=== PATIENT | female | born 2005 | race Caucasian/White ===

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

== ENCOUNTER 2024-10-26 11:49 | Emergency (ER) | payer SELFPAY ==
--- NOTE | ~2024-10-26 | XR_ITS ---
XR chest 2V Ordering provider: Jennifer Torres History: 18 years Female with . sob, chills x 4 days. sharpness on L side . Comparison: March 14, 2023 FINDINGS: MEDIASTINUM: The cardiac silhouette is not enlarged. LUNGS: No infiltrates, effusions or pneumothorax. OTHER: No free air under the diaphragm. IMPRESSION: No acute cardiopulmonary pathology. Reviewed, dictated and finalized at location A.
[2024-10-26 12:12] VITALS: BP 117/67; PULSE 82; RESP 18; TEMP 37; O2SAT 98
[2024-10-26 12:59] LABS: Influenza A QL RT-PCR Negative (Negative); Influenza B QL RT-PCR Negative (Negative); RSV RNA, RT-PCR Negative (Negative); SARS-CoV-2 RNA PCR Negative (Negative)
--- OUTSIDE RECORDS SUMMARY | 2024-10-26 13:08 | XMS_ITS | Data Portability ---
Author Organization [place] [facility] [employer], Main Office Address [address] [place] [address] Assessment No assessment recorded. Plan of Treatment Reminders Order Date Submit Date Provider Last Modified By Organization Details Last Modified Time Details Appointments None recorded. Lab vitamin D, 25-hydroxy , total, serum [email or web address] (Lab), [address] [place], [address], 3 16:56:02 CBC w/ manual diff [email or web address] (Lab), [address] [place], [address], 3 16:56:02 unlisted lab - vitamin B12 medicaid [address] (Lab), [address] [place], [address], 3 16:56:02 TSH, serum or plasma 2022 [address]23 [place] [id number] [address] [facility] (Lab), [address] [place], [address], 3 16:56:02 lipid panel, serum [address] (Lab), [address] [place], [address], 3 16:56:02 Referral None recorded. Procedures None recorded. Surgeries None recorded. Imaging None recorded. Medication Orders None recorded. Patient TargetsNo targets recorded. Patient InstructionsNo instructions recorded. Reason for Referral None Reported. Results Created Date Observation Date Name Description Value Unit Range Abnormal Flag Note LastModifiedBy Organization Detail LastModifiedTime Result Notes None recorded. Problems Name Problem SNOMED Code Status Onset Date Resolution Date Notes Provider Name and Address Organization Details Recorded Time Seasonal allergic rhinitis 802052322 Active 2016 Not Available [facility] 3 19:14:05 Loss of hair 131023269 Active 2022 Soco Arvizu MD [address] [employer], [place], [address] , [facility] 3 10:10:56 Hyperlipidemi a screening Active 2023 AMIRAH Obrien [address] [employer], [place], [address] , [facility] 4 15:49:39 Screening for disorder Active 2023 AMIRAH Obrien [address], [place], [address] , [facility] 4 15:50:08 Problem Notes None recorded. Medical Equipment None Reported. Allergies No known drug allergies Medications Name Sig Start Date Stop Date Status Note LastModified by Organization Details LastModified Time promethazin e-DM 6.25 mg-15 mg/5 mL oral syrup TAKE 5 ML BY MOUTH EVERY 4 TO 6 HOURS NEEDED FOR COUGH active Not Available Not Available No t Available cetirizine 10 mg tablet GIVE ELI 1 TABLET BY MOUTH EVERY DAY prn 02/19 completed Not Available Not Available Not Available azithromyci n 250 mg tablet active Not Available Not Available Not Available cephalexin 500 mg capsule TAKE 1 CAPSULE BY MOUTH EVERY 6 HOURS FOR 5 DAYS 02/19 completed Not Available Not Available Not Available nitrofurant oin macrocrysta l 100 mg capsule TAKE 1 CAPSULE BY MOUTH EVERY 12 HOURS FOR 5 DAYS active Not Available Not Available No t Available methylpredn isolone 4 mg tablets in a dose pack FOLLOW PACKAGE DIRECTION S active Not Available Not Available No t Available albuterol sulfate HFA 90 mcg/actuati on aerosol inhaler INHALE 2 PUFFS BY MOUTH FOUR TIMES DAILY NEEDED active Not Available Not Available No t Available Vitals Date Recorded Body height Body mass index (BMI) [Percentile] Per age and sex Body mass index (BMI) Body weight Body temperature Heart rate Oxygen saturation Oxygen saturation in Arterial blood by Pulse oximetry Systolic blood pressure Diastolic blood pressure Provider Name and Address Organization Details Last Updated DateTime 3 154.94 cm 84 % 25.5 kg/m2 60351.9 7 g 97.6 [degF] 81 /min 99 % 99 % 98 mm[Hg] 62 mm[Hg] Maureen wilkins CMA [facility] 09:55:44 Social History Question Answer Notes LastModified by [facility] Details LastModified Time Tobacco Smoking Status Never Smoker Maureen Sewell CMA [facility], [facility] 02/19/2023 09:57:46 What Is Your Level Of Alcohol Consumption? None [email or web address] Information not available 02/19/2023 Are You Or Have You Been Involved With Bullying? No [email or web address] Information not available 02/19/2023 What Is Your Level Of Caffeine Consumption? Occasional [email or web address] Information not available 02/19/2023 Are You Currently Employed? Yes [email or web address] Information not available 02/19/2023 What Type Of Diet Are You Following? REGULAR [email or web address] Information not available 02/19/2023 Do You Use Your Seat Belt Or Car Seat Routinely? Yes [email or web address] Information not available 02/19/2023 Are You Currently In School? Yes [email or web address] Information not available 02/19/2023 Do You Have Any Dietary Restrictions? No [email or web address] Information not available 02/19/2023 Sex: Female Functional Status Question Answer Note LastModified by [facility] Details LastModified Time What is your exercise level? Occasional [email or web address] Information not available 02/19/2023 Mental Status None recorded. Family History Nothing Reported. Medical History No medical history recorded. Gynecological HistoryNo gynecological history recorded. Obstetrics History GPAL:G 0 P 0 0 0 0 Immunizations Vaccine Type Date Status Note Provider Nam e and Address Organization Details Recorded Time Tdap 7 completed Not Available [facility] 08/28/2022 19:14:51 meningococcal MCV4P 7 completed Not Available [facility] 08/28/2022 19:14:51 HPV9 7 completed Not Available [facility] 08/28/2022 19:14:52 Past Encounters Encounter ID Performer Location Encounter Start Date Encounter Closed Date Diagnosis/Indication Diagnosis SNOMED-CT Code Diagnosis ICD10 Code Diagnosis Note [id number] Soco Arvizu MD [facility] Allie garay [address] [facility], [place] [address] 02/19/2023 09:47:26 02/19/2023 10:16:22 Adult health examination 116309314 Z00.00 Hyperlipid emia screening 459405527 Z13.220 Screening for disorder 573459218 Z13.9 Loss of hair 699349185 L 65.9 Health Concerns Section Related Observation LastModified by Organization Detai ls LastModified Time None Recorded Concern Status LastModified by Organization Details LastModified Time None Recorded Advance Directives Directive None Recorded Payers Encounter Date Sequence Insurance Name Policy Number Policy Silver Covered Member ID Silver Member ID Guarantor Name 02/19/2023 1 [facility] (MEDICAID REPLACEMENT - HMO) [id number] Eli Hernandez [id number] Notes Date Note Type Note Provider Name and Address Organization Details Recorded Time 02/19/2023 text/html Here as a new pt . to establish care. Had asthma but no issues. Thyroid issues run in the family. Was losing weight and hair loss. Is still losing hair. No other issues. Needs school form filled out and needs meningitis vaccine. Pt has to go to the health dept d/t insurance. Soco Arvizu MD [address] [facility], [facility] [address], [place], [address], [facility] [employer] [facility] [place] 02/19/2023 10:19:34 OBGyn Episode No OBEpisode recorded.
--- OUTSIDE RECORDS SUMMARY | 2024-10-26 13:08 | XMS_ITS | Clinical Summary ---
Author Organization [facility] Address [address] [place] [address] Care Team Providers Care Try Out Person Name Role Phone Unavailable Primary Care Provider Unavailabl e Immunizations Immunization Administration Dates Next Due Covid-19, Mrna, Lnp-s, Pf, 30 Mcg/0.3 Ml Dose (P fizer) 04/03/2021 Social History Tobacco Use Types Packs/Day Years Used Date Smoking Tobacco: Never Assessed Comments Unknown Sex and Gender Information Value Date Recorded Sex Assigned at Not on file Legal Sex Female 12:46 PM CDT Gender Identity Not on file Sexual Orientation Not on file Plan of Treatment Health Maintenance Due Date Last Done Comments Hepatitis C Virus (HCV) Screening 2004 Human Papillomavirus (HPV) Immunization (2 - 2-dose series) 10/09/2017 04/10/2017 Meningococcal B Immunization (1 of 2 - Standard) 2020 Influenza Immunization (#1) 2024 SARS-COV-2 Immunization (2 - season) 2024 04/03/2021 Respiratory Syncytial Virus (RSV) Immunization (Adult) (1 - 1-dose 75+ series) 12/22/2079 Hepatitis A Immunization Discontinued 03/05/2007, 06/30 Hepatitis B Immunization Completed 007, 07/11/2006, 2004 Measles Mumps Rubella (MMR) Immunization Discontinued 03/20/2010, 07/11/2006 Pneumococcal Immunization Combined Aged Out 03/20/2010, 03/05/2007, 07/11/2006 No longer eligible based on patient's age to complete this topic Varicella Immunization Discontinued 03/20/2010, 2006 Polio (IPV) Immunization Discontinued 011, 03/20/2010, 03/05/2007, Additional history exists DTaP/Tdap/Td Immunization Discontinued 2016, 10/03/2010, 03/20/2010, Additional history exists Meningococcal Immunization (ACWY) Aged Out 04/10/2017 No longer eligible based on patient's age to complete this topic TdaP Immunization Completed 04/10/2017 Rotavirus Immunization Aged Out No lo nger eligible based on patient's age to complete this topic
--- NOTE | 2024-10-26 13:56 | ED_ITS ---
HPI - URI/Sore Throat General Chief Complaint: Upper Respiratory Infection Stated Complaint: SHOB-congestion, Left Lung Pain Time Seen by Provider: 10/26/24 13:56 Focused HPI: This is a 18 year old female that presents to the ER for congestion, shortness of breath, cough, left sided chest pain. Ongoing since she woke up this morning. Denies fevers. GENERAL: Well-appearing, well-nourished, and in no acute distress. HEAD: Normocephalic, atraumatic. CHEST: Clear to auscultation. ?No respiratory distress. HEART: Regular rate and rhythm.? NEURO: ?Alert and oriented x3. Patient screened in triage and initial orders placed.? ?Additional care and disposition to be based upon?diagnostic testing and treatment. Related Data Allergies Allergy/AdvReac Type Severity Reaction Status Date / Time No Known Allergies Allergy Mild Verified 10/26/24 11:54 Review of Systems 2 Review of Systems: All systems reviewed & are unremarkable except as noted in HPI and below PMFSH Past Medical History Medical History (Updated 10/26/24 @ 14:57 by Jennifer Torres PA-C) No active medical problems Social History Social History (Updated 01/09/22 @ 17:42 by Larissa Long, CREDIT REVIEW OFFICER) Smoking status: Never smoker Living arrangements: with family Gender identity (if verbalized by the patient): Female Exam 2 Narrative: GENERAL: Well-appearing, well-nourished, and in no acute distress. HEAD: Normocephalic, atraumatic. EYES: EOMI. ENT: Nares clear, no rhinorrhea or epistaxis. Mucous membranes moist. Oropharynx without tonsillar hypertrophy exudate or other lesions. Bilateral TMs pearly zhang non-bulging NECK: Supple. No adenopathy or masses. CHEST: Clear to auscultation. No respiratory distress. No wheezes rales or rhonchi HEART: Regular rate and rhythm. No murmur heard. Normal peripheral pulses. EXTREMITIES: Normal range of motion. No edema. SKIN: Warm, dry, no rash. NEURO: No focal deficits. Alert and oriented x3. PSYCH: Normal mood and affect Course Course Emergency Course: Patient updated on her workup and agrees with plan of care Vital Signs Vital signs: Vital Signs Temperature 98.6 F 10/26/24 12:12 Pulse Rate 82 10/26/24 12:12 Respiratory Rate 18 10/26/24 12:12 Blood Pressure 117/67 10/26/24 12:12 Pulse Oximetry 98 10/26/24 12:12 Oxygen Delivery Room Air 10/26/24 12:12 Temperature 98.6 F 10/26/24 12:12 Pulse Rate 82 10/26/24 12:12 Respiratory Rate 18 10/26/24 12:12 Blood Pressure 117/67 10/26/24 12:12 Pulse Oximetry 98 10/26/24 12:12 Oxygen Delivery Room Air 10/26/24 12:12 MDM - URI/Sore Throat MDM Narrative Medical decision making narrative: Patient presents emergency department for cough, congestion, shortness of breath, chest discomfort. She is afebrile and nontoxic appearing. CBC with mild leukocytosis to 13.8. Metabolic panel without concerning findings. EKG without concerning changes and baseline troponin is negative. Influenza, RSV COVID screens are negative. Chest x-ray without acute cardiopulmonary abnormality. Patient updated on her workup and agrees with plan of care. Instructed on further care of viral infection. She is to follow up with primary provider. She was given warnings to return the ER Differential Diagnosis Differential diagnosis: Likely upper respiratory infection, sinusitis, viral infection, bronchitis, influenza and other (Pneumonia) Lab Data Attestation: I reviewed the patient's lab results. 10/26/24 14:09 10/26/24 14:09 Labs: Lab Results 10/26/24 10/26/24 Range/Units 12:13 14:09 WBC 13.8 H (4.5-10.0) K/mm3 RBC 4.14 L (4.2-5.4) M/mm3 Hgb 12.7 (12.0-15.0) g/dL Hct 38.8 (37.0-47.0) % MCV 93.7 (80-100) fl MCH 30.7 (26-34) pg MCHC 32.7 (32-36) g/dl RDW 13.1 (11.5-14.5) % Plt Count 259 (150-375) k/mm3 MPV 9.7 (7.4-10.4) fl Immature Gran % (Auto) 0.5 (0-0.5) % Neut % (Auto) 82.2 H (45.5-73.1) % Lymph % (Auto) 8.7 L (18.3-44.2) % Cavalier % (Auto) 6.6 (2.6-8.5) % Eos % (Auto) 1.7 (0-4.4) % Baso % (Auto) 0.3 (0.2-1.2) % Lymph # (Auto) 1.20 (0.9-3.2) K/mm3 Cavalier # (Auto) 0.9 H (0.1-0.6) K/mm3 Eos # (Auto) 0.2 (0-0.3) K/mm3 Baso # (Auto) 0.0 (0.0-0.1) K/mm3 Abs Immat Gran (auto) 0.07 H (0.00-0.031) K/mm3 Absolute Neuts (auto) 11.4 H (1.3-6.7) K/mm3 Absolute Nucleated RBC 0.000 (0.0-0.012) K/mm3 Nucleated RBC % 0.0 (0.0-0.2) % Sodium 136 (134-143) mmol/L Potassium 4.1 (3.4-5.0) mmol/L Chloride 102 (98-107) mmol/L Carbon Dioxide 23 (22-30) mmol/L Anion Gap 11 (4-12) mmol/L BUN 8 (8-21) mg/dL Creatinine 0.56 L (0.7-1.0) mg/dL Estim Creat Clear Calc 118 ml/min Estimated GFR > 60 (59 - ) Glucose 93 (65-110) mg/dL Calcium 9.3 (8.9-10.7) mg/dL Troponin I < 0.012 (0.000-0.034) ng/mL Influenza A (RT-PCR) Negative (Negative) Influenza B (RT-PCR) Negative (Negative) RSV (RT-PCR) Negative (Negative) SARS-CoV-2 RNA (RT-PCR) Negative (Negative) Imaging Data Radiologist's impression: ITS Impressions Chest X-Ray 10/26/24 14:41 IMPRESSION: No acute cardiopulmonary pathology. ECG Data EKG #1: ECG completion date: 10/26/24 EKG Interpretation: normal rate, sinus rhythm, no ST changes and normal QT Critical Care Time Critical Care Time Critical Care Time: No Discharge Plan Discharge Clinical Impression: Upper respiratory infection Qualifiers: URI type: unspecified viral URI Qualified Code(s): J06.9 - Acute upper respiratory infection, unspecified Patient Disposition: Home Condition: Stable Instructions: Cold Symptoms (ED) Additional Instructions: Return to the emergency department for worsening symptoms, or any other concerns Remain well-hydrated, get plenty of rest. Take Tylenol or Motrin [id number] for pain as needed. Flonase for nasal congestion. Zyrtec for runny nose. Lozenges or Chloraseptic spray for sore throat. Follow up with primary care doctor Patient Language: Hong Konger Prescriptions: No Action nitrofurantoin macrocrystal 100 mg capsule 100 mg PO Q12H 5 Days Qty: 10 5RF Rx Instructions: must administer with a meal/food Follow-up/Referrals: Luh,Soco Villarreal MD [Primary Care Provider] - Fady Ozuna MD [Physician] -
--- NOTE | 2024-10-26 13:58 | ECG_ITS ---
Test Date: 2024-10-26 14:12:55 Measurements Intervals [place] Rate: 96 P: 67 HI: 145 QRS: 82 QRSD: 91 T: 42 QT: 320 QTc: 405 Interpretive Statements SINUS RHYTHM WITH SINUS ARRHYTHMIA MINIMAL Q WAVES- INFERIOR LEADS BORDERLINE ECG No previous ECG available for comparison Electronically Signed On 10-26-2024 14:38:47 CDT by Konstantin Feldman D.O.
[2024-10-26 14:22] LABS: Basophils Percent Auto 0.3 % (0.2-1.2); Eosinophils Absolute Auto 0.2 K/mm3 (0-0.3); Eosinophils Percent Auto 1.7 % (0-4.4); Hematocrit 38.8 % (37.0-47.0); Hemoglobin 12.7 g/dL (12.0-15.0); Immature Granulocyte Absolute 0.07 K/mm3 (0.00-0.031); Immature Granulocyte Percent A 0.5 % (0-0.5); Lymphocytes Percent Auto 8.7 % (18.3-44.2); Mean Corpuscular HGB Conc 32.7 g/dl (32-36); Mean Corpuscular Hemoglobin 30.7 pg (26-34); Mean Corpuscular Volume 93.7 fl (80-100); Mean Platelet Volume 9.7 fl (7.4-10.4); Monocytes Absolute Auto 0.9 K/mm3 (0.1-0.6); Monocytes Percent Auto 6.6 % (2.6-8.5); Neutrophils Absolute Auto 11.4 K/mm3 (1.3-6.7); Neutrophils Percent Auto 82.2 % (45.5-73.1); Platelet Count Result 259 k/mm3 (150-375); Red Blood Count 4.14 M/mm3 (4.2-5.4); Red Cell Distribution Width 13.1 % (11.5-14.5); White Blood Count 13.8 K/mm3 (4.5-10.0)
[2024-10-26 14:32] LABS: Anion Gap 11 mmol/L (4-12); Blood Urea Nitrogen 8 mg/dL (8-21); Calcium 9.3 mg/dL (8.9-10.7); Carbon Dioxide 23 mmol/L (22-30); Chloride 102 mmol/L (98-107); Estimated CRCL calculation 118 ml/min; Estimated Glomerular Filt Rate > 60; Glucose 93 mg/dL (65-110); Potassium 4.1 mmol/L (3.4-5.0); Sodium 136 mmol/L (134-143)
[2024-10-26 14:44] LABS: Troponin I < 0.012 ng/mL (0.000-0.034)
== END 2024-10-26 15:10 | disposition home or self-care (01) ==
LOC: ANHED 15:07
PROVIDERS: Emergency Medicine; Emergency Provider Physician Assistant
DX: J06.9 Acute upper respiratory infection, unspecified (principal); Z20.822 Contact with and (suspected) exposure to COVID-19
CPT/HCPCS: 36415; 71046; 80048; 84484; 85025; 87637; 93005; 99284

== ENCOUNTER 2025-01-18 20:46 | Emergency (ER) | payer SELFPAY ==
--- OUTSIDE RECORDS SUMMARY | 2025-01-18 20:48 | XMS_ITS | Data Portability ---
Author Organization [place] [facility] [employer], Main Office Address [address] [place] [address] Assessment No assessment recorded. Plan of Treatment Reminders Order Date Submit Date Provider Last Modified By Organization Details Last Modified Time Details Appointments None recorded. Lab vitamin D, 25-hydroxy , total, serum 2022 023 [email or web address] 2 [facility] (Lab), [address] [place], [address], 16:56:02 CBC w/ manual diff 2022 023 [facility] 2 [facility] (Lab), [address] [place], [address], 16:56:02 unlisted lab - vitamin B12 medicaid 2022 023 [facility] 2 [facility] (Lab), [address] [place], [address], 16:56:02 TSH, serum or plasma 2022 023 [facility] 2 [facility] (Lab), [address] [place], [address], 3 16:56:02 lipid panel, serum 2022 023 [facility] 2 [facility] (Lab), [address] [place], [address], 3 16:56:02 Referral None recorded. Procedures None recorded. Surgeries None recorded. Imaging None recorded. Medication Orders None recorded. Patient TargetsNo targets recorded. Patient InstructionsNo instructions recorded. Reason for Referral None Reported. Results Created Date Observation Date Name Description Value Unit Range Abnormal Flag Note LastModifiedBy Organization Detail LastModifiedTime 10/27/1910/26/2024 imagi ng/moris evert tic resul t No observ ation record ed. [facility] [address], [place], [address], 10/26/2024 16:21:09 Result Notes None recorded. Problems Name Problem SNOMED Code Status Onset Date Resolution Date Notes Provider Name and Address Organization Details Recorded Time Seasonal allergic rhinitis 885508103 Active 2016 Not Available [facility] 3 19:14:05 Loss of hair 160095183 Active 2022 Soco Arvizu MD [address], [place], [address] , [employer] 3 10:10:56 Hyperlipidemi a screening Active 2023 AMIRAH Obrien [address], [place], [address] , [employer] 4 15:49:39 Screening for disorder Active 2023 AMIRAH Obrien [address], [place], [address] , [employer] 4 15:50:08 Problem Notes None recorded. Medical [...] in Arterial blood by Pulse oximetry Systolic And Diastolic Provider Name and Address Organization Details Last Updated DateTime 154.94 cm 84 % 25.5 kg/m2 68731.9 7 g 97.6 [degF] 81 /min 99 % 99 % 98/62 mm[Hg] Maureen wilkins CMA [employer] 09:55:44 Social History Question Answer Notes LastModified by [employer] Details LastModified Time Tobacco Smoking Status Never Smoker Maureen Sewell CMA [facility], [employer] 02/19/2023 09:57:46 What Is Your Level Of Caffeine Consumption? Occasional [email or web address] Information not available 02/19/2023 What Type Of Diet Are You Following? REGULAR [email or web address] Information not available 02/19/2023 Do You Use Your Seat Belt Or Car Seat Routinely? Yes [email or web address] Information not available 02/19/2023 Are You Currently In School? Yes [email or web address] Information not available 02/19/2023 Do You Have Any Dietary Restrictions? No [email or web address] Information not available 02/19/2023 Sex: Female Functional Status Question Answer Note LastModified by [employer] Details LastModified Time What is your level of alcohol consumption? None [email or web address] Information not available 02/19/2023 Are you currently employed? Yes [email or web address] Information not available 02/19/2023 What is your exercise level? Occasional [email or web address] Information not available 02/19/2023 Mental Status Question Answer Note LastModified by Organization D etails LastModified Time Are you or have you been involved with bullying? No [email or web address] Information not available 02/19/2023 Family History Nothing Reported. Medical History No medical history recorded. Gynecological HistoryNo gynecological history recorded. Obstetrics History GPAL:G 0 P 0 0 0 0 Immunizations Vaccine Type Date Status Note Provider Nam e and Address Organization Details Recorded Time Tdap 7 completed Not Available [facility] 08/28/2022 19:14:51 meningococcal MCV4P 7 completed Not Available [facility] 08/28/2022 19:14:51 HPV9 7 completed Not Available [facility] 08/28/2022 19:14:52 Past Encounters Encounter ID Performer Location Encounter Start Date Encounter Closed Date Diagnosis/Indication Diagnosis SNOMED-CT Code Diagnosis ICD10 Code Diagnosis Note [id number] Soco Arvizu MD [facility] Family Practice Rodney landry [address] [facility] [address] [place] [address] 02/19/2023 09:47:26 02/19/2023 10:16:22 Adult health examination 147772236 Z00.00 Hyperlipid emia screening 362937620 Z13.220 Screening for disorder 212098217 Z13.9 Loss of hair 401806347 L 65.9 Health Concerns Section Related Observation LastModified by Organization Detai ls LastModified Time None Recorded Concern Status LastModified by Organization Details LastModified Time None Recorded Advance Directives Directive None Recorded Payers Insurance Date Sequence Insurance Name Policy Number Policy Silver Covered Member ID Silver Member ID Guarantor Name 02/25/2024 1 [facility] (MEDICAID REPLACEMENT - HMO) [id number] Eli Hernandez [id number] Notes Date Note Type Note Provider [...] health dept d/t insurance. Soco Arvizu MD [address] [place] [address], [facility] [address], [place], [address], [facility], [facility] 02/19/2023 10:19:34 OBGyn Episode No OBEpisode recorded.
--- OUTSIDE RECORDS SUMMARY | 2025-01-18 20:48 | XMS_ITS | Clinical Summary ---
Author Organization [facility] Address [address] [place] [address] Care Team Providers Care Cigar Maker Name Role Phone Unavailable Primary Care Provider [...]
--- OUTSIDE RECORDS SUMMARY | 2025-01-18 20:48 | XMS_ITS | Clinical Summary ---
Author Organization [facility] Address [address] [place] [address] Care Team Providers Care Patient Account Liaison Name Role Phone None, Provider Primary Care Provider Unavaila ble Allergies No known active allergies Medications No known medications Encounters Date Type Department Care Team Description 12/06/2024 2:24 PM CDT - 12/06/2024 4:15 PM CDT Emergency [facility] [place] [address] Ronn Conroy PA Abdominal Pain; Nausea Discharge Disposition: Home or Self Care (Routine Discharge) 12/06/2024 Travel 10/27/2024 10:48 AM CDT - 10/27/2024 12:40 PM CDT Emergency [facility] [place] [address] Emma Collado PA Flu Like Symptoms Discharge Disposition: Home or Self Care (Routine Discharge) 10/27/2024 Travel from Last 3 Months Social History Tobacco Use Types Packs/Day Years Used Date Smoking Tobacco: Never Smokeless Tobacco: Never Tobacco Cessation:Counseling Given: Not Answered Alcohol Use Standard Drinks/Week Comments Yes 0 (1 standard drink = 0.6 oz pur e alcohol) Comments No Sex and Gender Information Value Date Recorded Sex Assigned at Female 10/27/2024 11:06 AM CDT Legal Sex Female 10:14 AM CDT Gender Identity Not on file Sexual Orientation Not on file Last Filed Vital Signs Vital Sign Reading Time Taken Comments Blood Pressure 114/79 12/06/2024 2:11 PM CDT Pulse 67 12/06/2024 2:11 PM CDT Temperature 36.7 C (98 F) 12/06/2024 2:11 PM CDT Respiratory Rate 12 12/06/2024 2:11 PM CDT Oxygen Saturation 100% 12/06/2024 2:11 PM CDT Inhaled Oxygen Concentration - - Weight 66.9 kg (147 lb 7.8 oz) 12/06/2024 2:11 P M CDT Height 154.9 cm (5' 1) 12/06/2024 2:11 PM CDT Body Mass Index 27.87 12/06/2024 2:11 PM CDT Plan of Treatment Health Maintenance Due Date Last Done Comments Annual Physical 12/22/2007 HPV Vaccines (2 - 2-dose series) 10/09/2017 04/10/2017 Meningococcal B Vaccine (1 of 2 - Standard) 2020 Hepatitis C 2022 COVID-19 Vaccine ( season) 2024 04/24/2021, 04/03/2021 DTaP, Tdap and Td Vaccines (6 - Td or Tdap) 04/10/2027 04/10/2017, 10/03/2010, 03/20/2010, Additional history exists Hepatitis B Vaccines Completed 03/05/2007, 07/11/2006, 2004 Pneumococcal Vaccine: Pediatrics (0 to 5 Years) and At-Risk Patients (6 to 49 Years) Aged Out 03/20/2010, 03/05/2007, 07/11/2006 No longer eligible based on patient's age to complete this topic Meningococcal Vaccine Completed 04/14/2023, 017 RSV Immunizations Under 20 Months Aged Out No longer eligible based on patient's age to complete this topic Procedures Procedure Name Priority Date/Time Associated Diagnosis Comments XR ABD KUB STAT 12/06/2024 2:55 PM CDT POCT URINE (BACK OFFICE) STAT 12/06/2024 2:38 PM CDT HC URINALYSIS AUTO W/O MICRO STAT 12/06/2024 2:25 PM CDT LIPASE STAT 12/06/2024 2:25 PM CDT COMPREHENSIVE METABOLIC PANEL STAT 12/06/2024 2:25 PM CDT CBC W/DIFF AUTOMATED STAT 12/06/2024 2:25 PM CDT STREP A RAPID STAT 10/27/2024 11:06 AM CDT INFLUENZA A & B STAT 10/27/2024 11:06 AM CDT CORONAVIRUS (COVID 19) STAT 11:06 AM CDT COMPREHENSIVE METABOLIC PANEL STAT 10/27/2024 11:01 AM CDT CBC W/DIFF AUTOMATED STAT 10/27/2024 11:01 AM CDT POCT URINE (BACK OFFICE) STAT 10/27/2024 10:59 AM CDT from Last 3 Months Results * XR ABD KUB (12/06/2024 2:55 PM CDT) Anatomical Region Laterality Modality Abdomen Radiographic Shey ging 12/06/2024 2:58 PM CDT Impressions 12/06/2024 2:59 PM CDT IMPRESSION: Nonobstructive bowel gas pattern with mild amount of retained stool. Ordered By: RONN CONROY Interpreted By: Damon Lopez MD, 12/06/2024 2:58 PM Narrative 12/06/2024 2:59 PM CDT [facility] [address] [place], [place] [address] Examination: XR ABD KUB Exam time: 12/06/2024 2:44 PM Indication: constipation Comparison: None available. Technique: 2 supine views of the abdomen, 2 images. Findings: There is a nonobstructive bowel gas pattern with a mild amount of retained stool. No evidence of free intraperitoneal air or pneumatosis. Lung bases appear clear. No acute osseous abnormality. Procedure Note Damon Lopez MD - 12/06/2024 [facility] [address] [place], [place] [address] Examination: XR ABD KUB Exam time: 12/06/2024 2:44 PM Indication: constipation Comparison: None available. Technique: 2 supine views of the abdomen, 2 images. Findings: There is a nonobstructive bowel gas pattern with a mild amountof retained stool. No evidence of free intraperitoneal air or pneumatosis.Lung bases appear clear. No acute osseous abnormality. IMPRESSION: Nonobstructive bowel gas pattern with mild amount of retained stool. Ordered By: RONN CONROY Interpreted By: Damon Lopez MD, 12/06/2024 2:58 PM [facility] Final Resul t * POCT urine (12/06/2024 2:38 PM CDT) Only the most recent of2 resultswithin the time period is included. URINE HCG TEST NEGATIVE Internal Control: VALID 12/06/2024 2:38 PM CDT Ronn [facility] POINT OF CARE TEST ORDERABL ES Final Result * URINALYSIS (12/06/2024 2:25 PM CDT) SPECIMEN TYPE URINE CLEAN CATCH 12/06/2024 2:38 PM CDT [facility] COLOR (U) COLORLESS 12/06/2024 2:44 PM CDT [facility] TRANSPARENCY CLEAR 12/06/2024 2:44 PM CDT [facility] SPECIFIC GRAVITY (U) 1.010 1.001 - 1.030 12/06/2024 2:44 PM CDT [facility] U PH 7.0 5.0 - 9.0 12/06/2024 2:44 PM CDT [facility] LEUKOCYTES (U) NEGATIVE NEGATIVE 12/06/2024 2:44 PM CDT [facility] NITRITES NEGATIVE NEGATIVE 12/06/2024 2:44 PM CDT [facility] PROTEIN RANDOM (U) NEGATIVE <30 MG/DL 12/06/2024 2:44 PM CDT [facility] GLUCOSE (U) NORMAL NORMAL MG/DL 12/06/2024 2:44 PM CDT [facility] KETONES MG/DL (U) NEGATIVE NEGATIVE MG/DL 12/06/2024 2:44 PM CDT [facility] UROBILINOGEN NORMAL NORMAL MG/DL 12/06/2024 2:44 PM CDT [facility] BILIRUBIN (U) NEGATIVE NEGATIVE MG/DL 12/06/2024 2:44 PM CDT [facility] BLOOD (U) NEGATIVE NEGATIVE 12/06/2024 2:44 PM CDT [facility] URINE SPECIMEN OBTAINED BY CLEAN CATCH PROCEDURE / Unknown 12/06/2024 2:25 PM CDT us Ronn MACARIO URINE ORDERABLES Final Resu lt [facility] [address] [place] [address], [place] [phone] * COMPREHENSIVE METABOLIC PANEL (12/06/2024 2:25 PM CDT) Only the most recent of2 resultswithin the time period is included. GLUCOSE 91 70 - 99 MG/DL 12/06/2024 3:07 PM CDT [facility] BUN 9 7 - 18 MG/DL 12/06/2024 3:07 PM CDT [facility] CREATININE S/P/B 0.61 0.55 - 1.02 MG/DL 12/06/2024 3:07 PM CDT [facility] SODIUM S/P/B 138 136 - 145 MMOL/L 12/06/2024 3:07 PM CDT [facility] POTASSIUM S/P/B 3.9 3.5 - 5.1 MMOL/L 12/06/2024 3:07 PM CDT [facility] CHLORIDE S/P/B 109 97 - 115 MMOL/L 12/06/2024 3:07 PM CDT [facility] CO2 22.1 21 - 32 MMOL/L 12/06/2024 3:07 PM CDT [facility] CALCIUM S/P/B 9.2 8.5 - 10.1 MG/DL 12/06/2024 3:07 PM CDT [facility] BILIRUBIN TOTAL S/P/B 0.5 0.2 - 1.1 MG/DL 12/06/2024 3:07 PM CDT [facility] Comment: THIS ASSAY IS NOT RECOMMENDED FOR PATIENTS UNDERGOING TREATMENT WITH ELTROMBOPAG DUE TO THE POTENTIAL FOR FALSELY ELEVATED RESULTS. TOTAL PROTEIN S/P/B 7.7 6.4 - 8.2 G/DL 12/06/2024 3:07 PM CDT [facility] ALBUMIN S/P/B 3.9 3.4 - 5.0 G/DL 12/06/2024 3:07 PM T [facility] AST 18 15 - 37 U/L 12/06/2024 3:07 PM CDT [facility] ALT 36 14 - 55 U/L 12/06/2024 3:07 PM CDT [facility] ALKALINE PHOSPHATASE S/P/B 59 50 - 136 U/L 12/06/2024 3:07 PM CDT [facility] ANION GAP 6.9 2 - 10 MMOL/L 12/06/2024 3:07 PM CDT [facility] BUN CREATININE RATIO 14.8 6 - 26 12/06/2024 3:07 PM CDT [facility] A/G RATIO 1.0 1.0 - 2.0 RATIO 12/06/2024 3:07 PM CDT [facility] GFR ESTIMATE >90 >90 ML/MIN/1.7 3 M2 12/06/2024 3:07 PM CDT [facility] Comment: NOTE: eGFR is not calculated for patients <18 years of age or gender unknown. This is an estimated GFR calculation using the new CKD EPI creatinine equation without race and so does not require a correction factor for race. This estimated GFR should not be used for calculating drug doses. 12/06/2024 2:25 PM CDT [facility] Final Resul t [facility] [address] [place] [address], [place] [phone] * CBC W/DIFF AUTOMATED (12/06/2024 2:25 PM CDT) Only the most recent of2 resultswithin the time period is included. WBC 8.29 4.5 - 13.0 x10'3/uL 12/06/2024 3:00 PM CDT [facility] RBC 4.31 4.20 - 5.40 x10'6/uL 12/06/2024 3:00 PM CDT [facility] HGB 13.1 12.0 - 16.0 G/DL 12/06/2024 3:00 PM CDT [facility] HCT 38.6 38.0 - 48.0 % 12/06/2024 3:00 PM CDT [facility] MCV 89.6 81.0 - 99.0 FL 12/06/2024 3:00 PM CDT [facility] MCH 30.4 27.0 - 31.0 PG 12/06/2024 3:00 PM CDT [facility] MCHC 33.9 32.0 - 36.0 G/DL 12/06/2024 3:00 PM CDT [facility] RDW 12.5 11.5 - 14.5 % 12/06/2024 3:00 PM CDT [facility] PLT 260 130 - 400 x10'3/uL 12/06/2024 3:00 PM CDT [facility] MPV 10.2 9.3 - 12.2 FL 12/06/2024 3:00 PM CDT [facility] DIFFERENTIAL TYPE AUTOMATED DIFFERENTIAL 12/06/2024 3:00 PM CDT [facility] NEUTROPHILS % 72.3 % 12/06/2024 3:00 PM CDT [facility] LYMPHOCYTES % 18.6 % 12/06/2024 3:00 PM CDT [facility] MONOCYTES % 6.6 % 12/06/2024 3:00 PM CDT [facility] EOSINOPHILS 1.8 % 12/06/2024 3:00 PM CDT [facility] BASOPHILS 0.5 % 12/06/2024 3:00 PM CDT [facility] IMMATURE GRANS % 0.2 % 12/07/19 3:00 PM CDT [facility] ABS. NEUTROPHILS 5.99 1.80 - 8.00 x10'3/uL 12/06/2024 3:00 PM CDT [facility] ABS. LYMPHOCYTES 1.54 1.20 - 5.20 x10'3/uL 12/06/2024 3:00 PM CDT [facility] ABS. MONOCYTES 0.55 0.24 - 0.86 x10'3/uL 12/06/2024 3:00 PM CDT [facility] ABS. EOSINOPHILS 0.15 0.04 - 0.36 x10'3/uL 12/06/2024 3:00 PM CDT [facility] ABS. BASOPHILS 0.04 0.01 - 0.08 x10'3/uL 12/06/2024 3:00 PM CDT [facility] ABS. IMMATURE GRANULOCYTES 0.02 0.00 - 0.49 x10'3/uL 12/06/2024 3:00 PM CDT [facility] 12/06/2024 2:25 PM CDT [facility] Final Resul t [facility] [address] [place] [address], [place] [phone] * LIPASE (12/06/2024 2:25 PM CDT) LIPASE 23 13 - 75 UNITS/L 12/06/2024 3:07 PM CDT [facility] 12/06/2024 2:25 PM CDT [facility] Final Resul t [facility] [address] [place] [address], [place] [phone] * CORONAVIRUS (COVID 19) (10/27/2024 11:06 AM CDT) CORONAVIRUS SARS COV 2 RNA NEGATIVE NEGATIVE 10/27/2024 11:27 AM CDT [facility] Comment: NEGATIVE RESULTS DO NOT RULE OUT COVID 19 AND SHOULD NOT BE USED THE SOLE BASIS FOR TREATMENT OR PATIENT MANAGEMENT DECISIONS, INCLUDING INFECTION CONTROL DECISIONS. NEGATIVE RESULTS SHOULD BE CONSIDERED IN THE CONTEXT OF A PATIENT'S RECENT EXPOSURES, HISTORY AND THE PRESENCE OF CLINICAL SIGNS AND SYMPTOMS CONSISTENT WITH COVID 19. THE ID NOW COVID-19 2.0 TEST HAS BEEN AUTHORIZED BY THE FDA UNDER EAU FOR USE BY AUTHORIZED LABORATORIES. PERFORMED BY NUCLEIC ACID AMPLIFICATION FOR MOLECULAR QUALITATIVE DETECTION OF SARS-COV-2. SPECIMEN TYPE NASAL 10/27/2024 11:06 AM CDT [facility] NASAL STRUCTURE / Unknown 10/27/2024 11:06 AM CDT Emma [facility] - GENERAL ORDER RIYA Final Result [facility] [address] [place] [address], * INFLUENZA A & B (10/27/2024 11:06 AM CDT) SPECIMEN TYPE Negative for Group A Streptococci 10/27/2024 11:07 AM CDT [facility] INFLUENZA A NEGATIVE NEGATIVE 10/27/2024 11:27 AM CDT [facility] INFLUENZA B NEGATIVE NEGATIVE 10/27/2024 11:27 AM CDT [facility] Comment: Interpretation: Negative for Influenza A and B. A negative result does not exclude influenza virus infection. If influenza is circulating in your community, a diagnosis of influenza should be considered based on a patient's clinical presentation and empiric antiviral treatment should be considered, if indicated. If more conclusive testing is needed for hospitalized inpatients, follow-up confirmatory testing with RT-PCR requires a separate order. NASAL STRUCTURE / Unknown 10/27/2024 11:06 AM CDT Emma [facility] - GENERAL ORDER RIYA Final Result [facility] [address] [place] [address], [place] [phone] * (ABNORMAL) STREP A RAPID (10/27/2024 11:06 AM CDT) SPECIMEN TYPE THROAT 10/27/2024 11:06 AM CDT [facility] RAPID STREP TEST POSITIVE(A) NEGATIVE 10/27/2024 11:27 AM CDT [facility] STRUCTURE OF ANTERIOR PORTION OF NECK / Unknown 10/27/2024 11:06 AM CDT Emma [facility] - GENERAL ORDER RIYA Final Result [facility] [address] [place] [address], [place] [phone] from Last 3 Months Care Teams Patient Account Liaison Relationship Specialty Start Date End Date None, Provider, MD PCP - General UNKNOWN PHYSICIAN SPECIALTY 10/27/24
[2025-01-18 21:01] VITALS: BP 122/75; PULSE 104; RESP 16; TEMP 36.8; O2SAT 100
--- OUTSIDE RECORDS SUMMARY | 2025-01-18 21:45 | XMS_ITS | Clinical Summary ---
Author Organization [facility] Address [address] [place] [id number] Care Team Providers Care Business Development Director Name Role Phone None, Provider Primary Care Provider Unavaila ble Allergies No known active allergies Medications No known medications Encounters Date Type Department Care Team Description 12/06/2024 2:24 PM CDT - 12/06/2024 4:[address] [facility] [place] [address] Ronn Conroy PA Abdominal Pain; Nausea Discharge Disposition: Home or Self Care (Routine Discharge) 12/06/2024 Travel 10/27/2024 10:48 AM CDT - 10/27/2024 12:[address] [facility] [place] [address] Emma Collado PA Flu Like Symptoms Discharge [...] Ordered By: RONN CONROY Interpreted By: Damon Lopze MD, 12/06/2024 2:58 PM Narrative 12/06/2024 2:59 PM CDT [facility] [address] [place], [place] [address] Examination: XR ABD KUB Exam time: 12/06/2024 2:44 PM Indication: constipation Comparison: None available. Technique: 2 supine views of the abdomen, 2 images. Findings: There is a nonobstructive bowel gas pattern with a mild amount of retained stool. No evidence of free intraperitoneal air or pneumatosis. Lung bases appear clear. No acute osseous abnormality. Procedure Note Damon Lopez MD - 12/06/2024 [facility] [address] [place], [place] [address] Examination: XR ABD KUB Exam time: 12/06/2024 [...] URINE CLEAN CATCH 12/06/2024 2:[address] [facility] COLOR (U) COLORLESS 12/06/2024 2:[address] [facility] TRANSPARENCY CLEAR 12/06/2024 2:[address] [facility] SPECIFIC GRAVITY (U) 1.010 1.001 - 1.030 12/06/2024 2:[address] [facility] U PH 7.0 5.0 - 9.0 12/06/2024 2:[address] [facility] LEUKOCYTES (U) NEGATIVE NEGATIVE 12/06/2024 2:[address] [facility] NITRITES NEGATIVE NEGATIVE 12/06/2024 2:[address] [facility] PROTEIN RANDOM (U) NEGATIVE <30 MG/DL 12/06/2024 2:[address] [facility] GLUCOSE (U) NORMAL NORMAL MG/DL 12/06/2024 2:[address] [facility] KETONES MG/DL (U) NEGATIVE NEGATIVE MG/DL 12/06/2024 2:[address] [facility] UROBILINOGEN NORMAL NORMAL MG/DL 12/06/2024 2:[address] [facility] BILIRUBIN (U) NEGATIVE NEGATIVE MG/DL 12/06/2024 2:[address] [facility] BLOOD (U) NEGATIVE NEGATIVE 12/06/2024 2:[address] [facility] URINE SPECIMEN OBTAINED BY CLEAN CATCH PROCEDURE / Unknown 12/06/2024 2:25 PM CDT us Ronn MACARIO URINE ORDERABLES Final Resu lt [facility] [address] [place] [address], [place] [phone] * COMPREHENSIVE METABOLIC PANEL (12/06/2024 2:25 PM CDT) Only the most recent of2 resultswithin the time period is included. GLUCOSE 91 70 - 99 MG/DL 12/06/2024 3:[address] [facility] BUN 9 7 - 18 MG/DL 12/06/2024 3:[address] [facility] CREATININE S/P/B 0.61 0.55 - 1.02 MG/DL 12/06/2024 3:[address] [facility] SODIUM S/P/B 138 136 - 145 MMOL/L 12/06/2024 3:[address] [facility] POTASSIUM S/P/B 3.9 3.5 - 5.1 MMOL/L 12/06/2024 3:[address] [facility] CHLORIDE S/P/B 109 97 - 115 MMOL/L 12/06/2024 3:[address] [facility] CO2 22.1 21 - 32 MMOL/L 12/06/2024 3:[address] [facility] CALCIUM S/P/B 9.2 8.5 - 10.1 MG/DL 12/06/2024 3:[address] [facility] BILIRUBIN TOTAL S/P/B 0.5 0.2 - 1.1 MG/DL 12/06/2024 3:[address] [facility] Comment: THIS ASSAY IS NOT RECOMMENDED FOR PATIENTS UNDERGOING TREATMENT WITH ELTROMBOPAG DUE TO THE POTENTIAL FOR FALSELY ELEVATED RESULTS. TOTAL PROTEIN S/P/B 7.7 6.4 - 8.2 G/DL 12/06/2024 3:[address] [facility] ALBUMIN S/P/B 3.9 3.4 - 5.0 G/DL 12/06/2024 3:[address] [facility] AST 18 15 - 37 U/L 12/06/2024 3:[address] [facility] ALT 36 14 - 55 U/L 12/06/2024 3:[address] [facility] ALKALINE PHOSPHATASE S/P/B 59 50 - 136 U/L 12/06/2024 3:[address] [facility] ANION GAP 6.9 2 - 10 MMOL/L 12/06/2024 3:[address] [facility] BUN CREATININE RATIO 14.8 6 - 26 12/06/2024 3:[address] [facility] A/G RATIO 1.0 1.0 - 2.0 RATIO 12/06/2024 3:[address] [facility] GFR ESTIMATE >90 >90 ML/MIN/1.7 3 M2 12/06/2024 3:[address] [facility] Comment: NOTE: eGFR is not calculated for patients <18 years of age or gender unknown. This is an estimated GFR calculation using the new CKD EPI creatinine equation without race and so does not require a correction factor for race. This estimated GFR should not be used for calculating drug doses. 12/06/2024 2:25 PM CDT Ronn MACARIO LABORATORY Final Resul t [facility] [address] [place] [address], [place] [phone] * CBC W/DIFF AUTOMATED (12/06/2024 2:25 PM CDT) Only the most recent of2 resultswithin the time period is included. WBC 8.29 4.5 - 13.0 x10'3/uL 12/06/2024 3:[address] [facility] RBC 4.31 4.20 - 5.40 x10'6/uL 12/06/2024 3:[address] [facility] HGB 13.1 12.0 - 16.0 G/DL 12/06/2024 3:[address] [facility] HCT 38.6 38.0 - 48.0 % 12/06/2024 3:[address] [facility] MCV 89.6 81.0 - 99.0 FL 12/06/2024 3:[address] [facility] MCH 30.4 27.0 - 31.0 PG 12/06/2024 3:[address] [facility] MCHC 33.9 32.0 - 36.0 G/DL 12/06/2024 3:[address] [facility] RDW 12.5 11.5 - 14.5 % 12/06/2024 3:[address] [facility] PLT 260 130 - 400 x10'3/uL 12/06/2024 3:[address] [facility] MPV 10.2 9.3 - 12.2 FL 12/06/2024 3:[address] [facility] DIFFERENTIAL TYPE AUTOMATED DIFFERENTIAL 12/06/2024 3:[address] [facility] NEUTROPHILS % 72.3 % 12/06/2024 3:[address] [facility] LYMPHOCYTES % 18.6 % 12/06/2024 3:[address] [facility] MONOCYTES % 6.6 % 12/06/2024 3:[address] [facility] EOSINOPHILS 1.8 % 12/06/2024 3:[address] [facility] BASOPHILS 0.5 % 12/06/2024 3:[address] [facility] IMMATURE GRANS % 0.2 % 12/07/19 3:[address] [facility] ABS. NEUTROPHILS 5.99 1.80 - 8.00 x10'3/uL 12/06/2024 3:[address] [facility] ABS. LYMPHOCYTES 1.54 1.20 - 5.20 x10'3/uL 12/06/2024 3:[address] [facility] ABS. MONOCYTES 0.55 0.24 - 0.86 x10'3/uL 12/06/2024 3:[address] [facility] ABS. EOSINOPHILS 0.15 0.04 - 0.36 x10'3/uL 12/06/2024 3:[address] [facility] ABS. BASOPHILS 0.04 0.01 - 0.08 x10'3/uL 12/06/2024 3:[address] [facility] ABS. IMMATURE GRANULOCYTES 0.02 0.00 - 0.49 x10'3/uL 12/06/2024 3:[address] [facility] 12/06/2024 2:25 PM CDT Ronn MACARIO LABORATORY Final Resul t [facility] [address] [place] [id number], [place] [phone] * LIPASE (12/06/2024 2:25 PM CDT) LIPASE 23 13 - 75 UNITS/L 12/06/2024 3:[address] [facility] 12/06/2024 2:25 PM CDT Ronn MACARIO LABORATORY Final Resul t [facility] [address] [place] [address], [place] [phone] * CORONAVIRUS (COVID 19) (10/27/2024 11:06 AM CDT) CORONAVIRUS SARS COV 2 RNA NEGATIVE NEGATIVE 10/27/2024 11:[address] [facility] Comment: NEGATIVE RESULTS DO NOT RULE [...] SPECIMEN TYPE NASAL 10/27/2024 11:[address] [facility] NASAL STRUCTURE / Unknown 10/27/2024 11:06 AM CDT Emma MACARIO MICROBIOLOGY - GENERAL ORDER RIYA Final Result [facility] [address] [place] [address], * INFLUENZA A & B (10/27/2024 11:06 AM CDT) SPECIMEN TYPE Negative for Group A Streptococci 10/27/2024 11:[address] [facility] INFLUENZA A NEGATIVE NEGATIVE 10/27/2024 11:[address] [facility] INFLUENZA B NEGATIVE NEGATIVE 10/27/2024 11:[address] [facility] Comment: Interpretation: Negative for Influenza A [...] MICROBIOLOGY - GENERAL ORDER RIYA Final Result [facility] [address] [place] [address], [place] [phone] * (ABNORMAL) STREP A RAPID (10/27/2024 11:06 AM CDT) SPECIMEN TYPE THROAT 10/27/2024 11:[address] [facility] RAPID STREP TEST POSITIVE(A) NEGATIVE 10/27/2024 11:[address] [facility] STRUCTURE OF ANTERIOR PORTION OF NECK / Unknown 10/27/2024 11:06 AM CDT Emma MACARIO MICROBIOLOGY - GENERAL ORDER RIYA Final Result [facility] [address] [place] [address], [place] [phone] from Last 3 Months Care Teams Business Development Director Relationship Specialty Start Date End Date None, Provider, MD PCP - General UNKNOWN PHYSICIAN SPECIALTY 10/27/24
--- OUTSIDE RECORDS SUMMARY | 2025-01-18 21:45 | XMS_ITS | Clinical Summary ---
Author Organization [facility] Address [address] [place] [address] Care Team Providers Care Deputy Sheriff Lieutenant Name Role Phone Unavailable Primary Care Provider [...]
[2025-01-18 22:12] LABS: Strep Group A RT-PCR NOT DETECTED (Negative)
--- NOTE | 2025-01-18 22:21 | ED_ITS ---
HPI - General Adult General Chief complaint: Upper Respiratory Infection Stated complaint: fever 100.4, throat pain, body aches, chills Time Seen by Provider: 01/18/25 21:23 History of Present Illness HPI narrative: 19-year-old female presents to the emergency department for evaluation for sore throat congestion, headache, cough and fatigue. Patient was concerned that she was having strep throat. Patient does have prior history of strep throat. 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 Related Data Allergies Allergy/AdvReac Type Severity Reaction Status Date / Time No Known Allergies Allergy Mild Verified 01/18/25 21:05 Review of Systems Review of Systems: All systems reviewed & are unremarkable except as noted in HPI and below PMFSH Past Medical History Medical History (Updated 01/19/25 @ 00:00 by Shawn Mo) No active medical problems Social History Social History (Updated 01/09/22 @ 17:42 by Larissa Long, DIRECTOR TOXICOLOGY) Smoking status: Never smoker Living arrangements: with family Gender identity (if verbalized by the patient): Female Exam Narrative: APPEARANCE: Well appearing, no pain, no distress, well-nourished. HEAD: normocephalic, atraumatic. EYES: PERRLA/EOMI, conjunctivae clear. NOSE: Normal no drainage EARS:TMS clear with good light reflex. THROAT: Pharynx clear, no exudate. NECK: Supple. No adenopathy, no masses. RESPIRATORY: Airway patent, respirations nonlabored. Clear to auscultation bilaterally, no rales, rhonchi, wheezing. CARDIOVASCULAR: Regular rate and rhythm without murmurs rubs or gallops. ABDOMINAL: Soft, nontender, nondistended, normal bowel sounds MUSCULOSKELETAL: Moves all extremities. Strength/ROM intact, No edema, No calf tenderness. NEURO: Alert. Cranial nerves II through XII intact. Good gait. Good coordination SKIN: Warm, dry. Normal Color Course Vital Signs Vital signs: Vital Signs Temperature 98.2 F 01/18/25 21:01 Pulse Rate 104 H 01/18/25 21:01 Respiratory Rate 16 01/18/25 21:01 Blood Pressure 122/75 01/18/25 21:01 Pulse Oximetry 100 01/18/25 21:01 Oxygen Delivery Room Air 01/18/25 21:01 Temperature 98.9 F 01/18/25 22:33 Pulse Rate 85 01/18/25 22:33 Respiratory Rate 16 01/18/25 22:33 Blood Pressure 120/82 01/18/25 22:33 Pulse Oximetry 100 01/18/25 22:33 Oxygen Delivery Room Air 01/18/25 21:01 Medical Decision Making MDM Narrative Medical decision making narrative: 19-year-old female presents emergency department for evaluation for congestion sore throat. Patient has viral aperture was wall for negative. Patient was advised that she was likely is a viral syndrome. Patient was comfortable plan for antibiotic treatment discharged home. Vital Signs Vital Signs: Vital Signs Temperature 98.2 F 01/18/25 21:01 Pulse Rate 104 H 01/18/25 21:01 Respiratory Rate 16 01/18/25 21:01 Blood Pressure 122/75 01/18/25 21:01 Pulse Oximetry 100 01/18/25 21:01 Oxygen Delivery Room Air 01/18/25 21:01 Temperature 98.9 F 01/18/25 22:33 Pulse Rate 85 01/18/25 22:33 Respiratory Rate 16 01/18/25 22:33 Blood Pressure 120/82 01/18/25 22:33 Pulse Oximetry 100 01/18/25 22:33 Oxygen Delivery Room Air 01/18/25 21:01 Lab Data Labs: Lab Results 01/18/25 Range/Units 21:43 Group A Strep (PCR) Not detected (Negative) Discharge Plan Discharge Clinical Impression: Viral infection, Pharyngitis Patient Disposition: Home Condition: Stable Instructions: Antibiotic Form, Viral Syndrome (ED), Cold Symptoms (ED) Additional Instructions: Tylenol and ibuprofen for fever chills and body aches. Drink plenty of fluids. Mild decongestant such as Claritin or Zyrtec to help with postnasal drip. Warm salt water gargle to help with sore throat. Have close follow-up with your primary care physician. If you have any worsening symptoms and please call or return to the emergency department. Patient Language: [place] Prescriptions: No Action nitrofurantoin macrocrystal 100 mg capsule 100 mg PO Q12H 5 Days Qty: 10 5RF Rx Instructions: must administer with a meal/food Follow-up/Referrals: UNKNOWN,DOCTOR [Primary Care Provider] - Stand Alone Forms: Work/School Release IP
[2025-01-18 22:33] VITALS: BP 120/82; PULSE 85; RESP 16; TEMP 37.2; O2SAT 100
== END 2025-01-18 22:33 | disposition home or self-care (01) ==
PROVIDERS: Emergency Provider Emergency Medicine
DX: B34.9 Viral infection, unspecified (principal); J02.9 Acute pharyngitis, unspecified
CPT/HCPCS: 87651; 99283

== ENCOUNTER 2025-01-24 00:42 | Emergency (ER) | payer SELFPAY ==
--- NOTE | ~2025-01-24 | XR_ITS ---
EXAMINATION: XR chest 2V 01/24/2025 01:15 INDICATION: Cough and congestion PROCEDURE: 2 view chest COMPARISON: 10/26/2024 FINDINGS: The lungs are clear. The cardiomediastinal silhouette is within normal limits. There are no pleural effusions. There is no pneumothorax suspected. IMPRESSION: 1: NO ACUTE CARDIOPULMONARY DISEASE. Reviewed, dictated and finalized at location B.
[2025-01-24 00:43] VITALS: BP 110/74; PULSE 78; RESP 16; TEMP 36.9; O2SAT 100
--- OUTSIDE RECORDS SUMMARY | 2025-01-24 00:44 | XMS_ITS | Clinical Summary ---
Author Organization [facility] Address [address] [place] [address] Care Team Providers Care Golf Course Superintendent Name Role Phone Unavailable Primary Care Provider [...] Immunization (1 of 2 - Standard) 2020 SARS-COV-2 Immunization (2 - season) 2024 04/03/2021 Influenza Immunization (#1) 2025 Respiratory Syncytial Virus (RSV) Immunization (Adult) (1 [...]
--- OUTSIDE RECORDS SUMMARY | 2025-01-24 00:44 | XMS_ITS | Clinical Summary ---
Author Organization [facility] Address [address] [place] [address] Care Team Providers Care Contact Lens Assistant Name Role Phone None, Provider Primary Care Provider Unavaila ble Allergies No known active allergies Medications No known medications Encounters Date Type Department Care Team Description 12/06/2024 2:24 PM CDT - 12/06/2024 4:15 PM CDT Emergency [facility] [place] [address] Ronn Conroy PA Abdominal Pain; Nausea Discharge Disposition: Home or Self Care (Routine Discharge) 12/06/2024 Travel 10/27/2024 10:48 AM CDT - 10/27/2024 12:40 PM CDT Emergency [facility] [place] [address] Emma Collado PA Flu Like Symptoms Discharge [...] 2:58 PM Narrative 12/06/2024 2:59 PM CDT [facility] [address] [place], [place] [address] Examination: XR ABD KUB Exam time: 12/06/2024 2:44 PM Indication: constipation Comparison: None available. Technique: 2 supine views of the abdomen, 2 images. Findings: There is a nonobstructive bowel gas pattern with a mild amount of retained stool. No evidence of free intraperitoneal air or pneumatosis. Lung bases appear clear. No acute osseous abnormality. Procedure Note Damon Lopez MD - 12/06/2024 [facility] [address] [place], [place] [address] Examination: XR ABD KUB Exam time: 12/06/2024 [...] CLEAN CATCH 12/06/2024 2:[address] [facility] COLOR (U) COLORLESS 12/06/2024 2:[address] [facility] TRANSPARENCY CLEAR 12/06/2024 2:[address] [facility] SPECIFIC GRAVITY (U) 1.010 1.001 - 1.030 12/06/2024 2:[address] [facility] U PH 7.0 5.0 - 9.0 12/06/2024 2:[address] [facility] LEUKOCYTES (U) NEGATIVE NEGATIVE 12/06/2024 2:[address] [facility] NITRITES NEGATIVE NEGATIVE 12/06/2024 2:[address] [facility] PROTEIN RANDOM (U) NEGATIVE <30 MG/DL 12/06/2024 2:[address] [facility] GLUCOSE (U) NORMAL NORMAL MG/DL 12/06/2024 2:[address] [facility] KETONES MG/DL (U) NEGATIVE NEGATIVE MG/DL 12/06/2024 2:[address] [facility] UROBILINOGEN NORMAL NORMAL MG/DL 12/06/2024 2:[address] [facility] BILIRUBIN (U) NEGATIVE NEGATIVE MG/DL 12/06/2024 2:[address] [facility] BLOOD (U) NEGATIVE NEGATIVE 12/06/2024 2:[address] [facility] URINE SPECIMEN OBTAINED BY CLEAN CATCH PROCEDURE / Unknown 12/06/2024 2:25 PM CDT us Ronn MACARIO URINE ORDERABLES Final Resu lt [facility] [address] [place] [address], [place] [phone] * COMPREHENSIVE METABOLIC PANEL (12/06/2024 2:25 PM CDT) Only the most recent of2 resultswithin the time period is included. GLUCOSE 91 70 - 99 MG/DL 12/06/2024 3:[address] [facility] BUN 9 7 - 18 MG/DL 12/06/2024 3:[address] [facility] CREATININE S/P/B 0.61 0.55 - 1.02 MG/DL 12/06/2024 3:[address] [facility] SODIUM S/P/B 138 136 - 145 MMOL/L 12/06/2024 3:[address] [facility] POTASSIUM S/P/B 3.9 3.5 - 5.1 MMOL/L 12/06/2024 3:[address] [facility] CHLORIDE S/P/B 109 97 - 115 MMOL/L 12/06/2024 3:[address] [facility] CO2 22.1 21 - 32 MMOL/L 12/06/2024 3:[address] [facility] CALCIUM S/P/B 9.2 8.5 - 10.1 MG/DL 12/06/2024 3:[address] [facility] BILIRUBIN TOTAL S/P/B 0.5 0.2 - 1.1 MG/DL 12/06/2024 3:[address] [facility] Comment: THIS ASSAY IS NOT RECOMMENDED FOR PATIENTS UNDERGOING TREATMENT WITH ELTROMBOPAG DUE TO THE POTENTIAL FOR FALSELY ELEVATED RESULTS. TOTAL PROTEIN S/P/B 7.7 6.4 - 8.2 G/DL 12/06/2024 3:[address] [facility] ALBUMIN S/P/B 3.9 3.4 - 5.0 G/DL 12/06/2024 3:[address] [facility] AST 18 15 - 37 U/L 12/06/2024 3:[address] [facility] ALT 36 14 - 55 U/L 12/06/2024 3:[address] [facility] ALKALINE PHOSPHATASE S/P/B 59 50 - 136 U/L 12/06/2024 3:[address] [facility] ANION GAP 6.9 2 - 10 MMOL/L 12/06/2024 3:[address] [facility] BUN CREATININE RATIO 14.8 6 - 26 12/06/2024 3:[address] [facility] A/G RATIO 1.0 1.0 - 2.0 RATIO 12/06/2024 3:[address] [facility] GFR ESTIMATE >90 >90 ML/MIN/1.7 3 M2 12/06/2024 3:[address] [facility] Comment: NOTE: eGFR is not calculated for patients <18 years of age or gender unknown. This is an estimated GFR calculation using the new CKD EPI creatinine equation without race and so does not require a correction factor for race. This estimated GFR should not be used for calculating drug doses. 12/06/2024 2:25 PM CDT Ronn MACARIO LABORATORY Final Resul t [facility] [address] [place] [address], [place] [phone] * CBC W/DIFF AUTOMATED (12/06/2024 2:25 PM CDT) Only the most recent of2 resultswithin the time period is included. WBC 8.29 4.5 - 13.0 x10'3/uL 12/06/2024 3:[address] [facility] RBC 4.31 4.20 - 5.40 x10'6/uL 12/06/2024 3:[address] [facility] HGB 13.1 12.0 - 16.0 G/DL 12/06/2024 3:[address] [facility] HCT 38.6 38.0 - 48.0 % 12/06/2024 3:[address] [facility] MCV 89.6 81.0 - 99.0 FL 12/06/2024 3:[address] [facility] MCH 30.4 27.0 - 31.0 PG 12/06/2024 3:[address] [facility] MCHC 33.9 32.0 - 36.0 G/DL 12/06/2024 3:[address] [facility] RDW 12.5 11.5 - 14.5 % 12/06/2024 3:[address] [facility] PLT 260 130 - 400 x10'3/uL 12/06/2024 3:[address] [facility] MPV 10.2 9.3 - 12.2 FL 12/06/2024 3:[address] [facility] DIFFERENTIAL TYPE AUTOMATED DIFFERENTIAL 12/06/2024 3:[address] [facility] NEUTROPHILS % 72.3 % 12/06/2024 3:[address] [facility] LYMPHOCYTES % 18.6 % 12/06/2024 3:[address] [facility] MONOCYTES % 6.6 % 12/06/2024 3:[address] [facility] EOSINOPHILS 1.8 % 12/06/2024 3:[address] [facility] BASOPHILS 0.5 % 12/06/2024 3:[address] [facility] IMMATURE GRANS % 0.2 % 12/07/19 3:[address] [facility] ABS. NEUTROPHILS 5.99 1.80 - 8.00 x10'3/uL 12/06/2024 3:[address] [facility] ABS. LYMPHOCYTES 1.54 1.20 - 5.20 x10'3/uL 12/06/2024 3:[address] [facility] ABS. MONOCYTES 0.55 0.24 - 0.86 x10'3/uL 12/06/2024 3:[address] [facility] ABS. EOSINOPHILS 0.15 0.04 - 0.36 x10'3/uL 12/06/2024 3:[address] [facility] ABS. BASOPHILS 0.04 0.01 - 0.08 x10'3/uL 12/06/2024 3:[address] [facility] ABS. IMMATURE GRANULOCYTES 0.02 0.00 - 0.49 x10'3/uL 12/06/2024 3:[address] [facility] 12/06/2024 2:25 PM CDT Ronn MACARIO LABORATORY Final Resul t [facility] [address] [place] [address], [place] [phone] * LIPASE (12/06/2024 2:25 PM CDT) LIPASE 23 13 - 75 UNITS/L 12/06/2024 3:[address] [facility] 12/06/2024 2:25 PM CDT Ronn MACARIO LABORATORY Final Resul t [facility] [address] [place] [address], [place] [phone] * CORONAVIRUS (COVID 19) (10/27/2024 11:06 AM CDT) CORONAVIRUS SARS COV 2 RNA NEGATIVE NEGATIVE 10/27/2024 11:[address] [facility] Comment: NEGATIVE RESULTS DO NOT RULE [...] TYPE NASAL 10/27/2024 11:[address] [facility] NASAL STRUCTURE / Unknown 10/27/2024 11:06 AM CDT Emma MACARIO MICROBIOLOGY - GENERAL ORDER RIYA Final Result [facility] [address] [place] [address], * INFLUENZA A & B (10/27/2024 11:06 AM CDT) SPECIMEN TYPE Negative for Group A Streptococci 10/27/2024 11:[address] [facility] INFLUENZA A NEGATIVE NEGATIVE 10/27/2024 11:[address] [facility] INFLUENZA B NEGATIVE NEGATIVE 10/27/2024 11:[address] [facility] Comment: Interpretation: Negative for Influenza A [...] - GENERAL ORDER RIYA Final Result [facility] [address] [place] [address], [place] [phone] * (ABNORMAL) STREP A RAPID (10/27/2024 11:06 AM CDT) SPECIMEN TYPE THROAT 10/27/2024 11:[address] [facility] RAPID STREP TEST POSITIVE(A) NEGATIVE 10/27/2024 11:[address] [facility] STRUCTURE OF ANTERIOR PORTION OF NECK / Unknown 10/27/2024 11:06 AM CDT Emma MACARIO MICROBIOLOGY - GENERAL ORDER RIYA Final Result [facility] [address] [place] [address], [place] [phone] from Last 3 Months Care Teams Contact Lens Assistant Relationship Specialty Start Date End Date None, Provider, MD PCP - General UNKNOWN PHYSICIAN SPECIALTY 10/27/24
--- OUTSIDE RECORDS SUMMARY | 2025-01-24 00:44 | XMS_ITS | Data Portability ---
Author Organization [place] [facility], Main Office Address [address] [place] [address] Assessment No assessment recorded. Plan of Treatment Reminders Order Date Submit Date Provider Last Modified By Organization Details Last Modified Time Details Appointments None recorded. Lab vitamin D, 25-hydroxy , total, serum 2022 023 [email or web address] 2 [facility] (Lab), [address] [place], [address], 16:56:02 CBC w/ manual diff [facility]22 [email or web address] (Lab), [address] [place], [address], 16:56:02 unlisted lab - vitamin B12 medicaid 2022 023 [email or web address] 2 [facility] (Lab), [address] [place], [address], 16:56:02 TSH, serum or plasma 2022 023 [email or web address] (Lab), [address] [place], [address], 3 16:56:02 lipid panel, serum 2022 023 [email or web address] (Lab), [address] [place], [address], 3 16:56:02 Referral None recorded. Procedures None recorded. Surgeries None recorded. Imaging None recorded. Medication Orders None recorded. Patient TargetsNo targets recorded. Patient InstructionsNo instructions recorded. Reason for Referral None Reported. Results Created Date Observation Date Name Description Value Unit Range Abnormal Flag Note LastModifiedBy Organization Detail LastModifiedTime 10/27/1910/26/2024 imagi ng/moris evert tic resul t No observ ation record ed. [facility] [address], [place], [address], 10/26/2024 16:21:09 Result Notes None recorded. Problems Name Problem SNOMED Code Status Onset Date Resolution Date Notes Provider Name and Address Organization Details Recorded Time Seasonal allergic rhinitis 026547721 Active 2016 Not Available [facility] 3 19:14:05 Loss of hair 802280450 Active 2022 Soco Arvizu MD [address], [address], [place], [address] , [facility] 3 10:10:56 Hyperlipidemi a screening Active 2023 AMIRAH Obrien [address], [address], [place], [address] , [facility] 4 15:49:39 Screening for disorder Active 2023 AMIRAH Obrien [address], [address], [place], [address] , [facility] 4 15:50:08 Problem Notes None recorded. Medical [...] DateTime 154.94 cm 84 % 25.5 kg/m2 37907.9 7 g 97.6 [degF] 81 /min 99 % 99 % 98/62 mm[Hg] Maureen wilkins CMA [facility] 09:55:44 Social History Question Answer Notes LastModified by [employer] Details LastModified Time Tobacco Smoking Status Never Smoker Maureen Sewell CMA [facility], [facility] 02/19/2023 09:57:46 What Is Your Level Of Caffeine Consumption? Occasional [email or web address] Information not available 02/19/2023 What Type Of Diet Are You Following? REGULAR [email or web address] Information not available 02/19/2023 Do You Use Your Seat Belt Or Car Seat Routinely? Yes [email or web address] Information not available 02/19/2023 Are You Currently In School? Yes [email or web address] Information not available 02/19/2023 Do You Have Any Dietary Restrictions? No [email or web address] Information not available 02/19/2023 Sex: Female Functional Status Question Answer Note LastModified by [employer] Details LastModified Time What is your level of alcohol consumption? None [email or web address] Information not available 02/19/2023 Are you currently employed? Yes [email or web address] Information not available 02/19/2023 What is your exercise level? Occasional [email or web address] Information not available 02/19/2023 Mental Status Question Answer Note LastModified by Organization D etails LastModified Time Are you or have you been involved with bullying? No [email or web address] Information not available 02/19/2023 Family History Nothing Reported. Medical History No medical history recorded. Gynecological HistoryNo gynecological history recorded. Obstetrics History GPAL:G 0 P 0 0 0 0 Immunizations Vaccine Type Date Status Note Provider Nam e and Address Organization Details Recorded Time Tdap 7 completed Not Available [facility] 08/28/2022 19:14:51 meningococcal MCV4P 7 completed Not Available [facility] 08/28/2022 19:14:51 HPV9 7 completed Not Available [facility] 08/28/2022 19:14:52 Past Encounters Encounter ID Performer Location Encounter Start Date Encounter Closed Date Diagnosis/Indication Diagnosis SNOMED-CT Code Diagnosis ICD10 Code Diagnosis Note [id number] Soco Arvizu MD [facility] Rodney landry [address] [facility] [address] [facility] [place] [address] 02/19/2023 09:47:26 02/19/2023 10:16:22 Adult health examination 876297773 Z00.00 Hyperlipid emia screening 178405427 Z13.220 Screening for disorder 325776097 Z13.9 Loss of hair 517385943 L 65.9 Health Concerns Section Related Observation LastModified by Organization Detai ls LastModified Time None Recorded Concern Status LastModified by Organization Details LastModified Time None Recorded Advance Directives Directive None Recorded Payers Insurance Date Sequence Insurance Name Policy Number Policy Silver Covered Member ID Silver Member ID Guarantor Name 02/25/2024 1 [facility] (MEDICAID REPLACEMENT - HMO) [id number] Eli Hernandez [id number] Notes Date Note Type Note Provider Name and Address Organization Details Recorded Time 02/19/2023 text/html Here as a new pt. to establish care. Had asthma but no issues. Thyroid issues run in the family. Was losing weight and hair loss. Is still losing hair. No other issues. Needs school form filled out and needs meningitis vaccine. Pt has to go to the health dept d/t insurance. Soco Arvizu MD [address] [place] [address], [facility] [address], [place], [address], [facility] 02/19/2023 10:19:34 OBGyn Episode No OBEpisode recorded.
[2025-01-24 00:50] VITALS: BP 105/72; PULSE 72; RESP 16; O2SAT 99
--- NOTE | 2025-01-24 00:52 | ECG_ITS ---
Test Date: 2025-01-24 01:03:50 Measurements Intervals [place] Rate: 66 P: 58 TX: 159 QRS: 86 QRSD: 93 T: 57 QT: 385 QTc: 405 Interpretive Statements SINUS ARRHYTHMIA Compared to ECG 10/26/2024 14:12:55 NO SIGNIFICANT CHANGES Electronically Signed On 01-24-2025 12:40:38 CDT by Kimani Dick M.D.
[2025-01-24 01:13] LABS: Hematocrit 36.7 % (37.0-47.0); Hemoglobin 12.4 g/dL (12.0-15.0); Immature Granulocyte Percent A 0.3 % (0-0.5); Lymphocytes Absolute Auto 2.50 K/mm3 (0.9-3.2); Mean Corpuscular HGB Conc 33.8 g/dl (32-36); Mean Corpuscular Hemoglobin 30.1 pg (26-34); Mean Corpuscular Volume 89.1 fl (80-100); Nucleated Red Blood Cells Absolute Auto 0.000 K/mm3 (0.0-0.012); Nucleated Red Blood Cells Perc 0.0 % (0.0-0.2); Platelet Count Result 289 k/mm3 (150-375); Red Blood Count 4.12 M/mm3 (4.2-5.4); White Blood Count 7.2 K/mm3 (4.5-10.0)
[2025-01-24] MEDS: IPRATROPIUM 0.5 MG/ALBUTEROL SULFATE 2.5 MG AMPUL.NEB 3 ML INHALATION (01:22)
[2025-01-24 01:23] VITALS: PULSE 62; RESP 14; O2SAT 97
[2025-01-24 01:24] LABS: Alanine Aminotransferase 20 U/L (6-35); Albumin Level 4.6 g/dL (3.5-5.1); Alkaline Phosphatase 61 U/L (38-126); Anion Gap 10 mmol/L (4-12); Aspartate Amino Transferase 27 U/L (14-36); Bilirubin,Total 0.3 mg/dL (0.2-1.3); Carbon Dioxide 22 mmol/L (22-30); Chloride 103 mmol/L (98-107); Potassium 3.4 mmol/L (3.4-5.0); Sodium 135 mmol/L (137-145); Total Protein 8.4 g/dL (6.3-8.2)
[2025-01-24 01:36] LABS: Blood Urea Nitrogen 9 mg/dL (7-17); Calcium 9.4 mg/dL (8.4-10.2); Estimated CRCL calculation 105 ml/min; Estimated Glomerular Filt Rate > 60; Glucose 93 mg/dL (65-110)
--- OUTSIDE RECORDS SUMMARY | 2025-01-24 01:36 | XMS_ITS | Clinical Summary ---
Author Organization [facility] Address [address] [place] [address] Care Team Providers Care Track Machine Operator Repairer Name Role Phone None, Provider Primary Care Provider Unavaila ble Allergies No known active allergies Medications No known medications Encounters Date Type Department Care Team Description 12/06/2024 2:24 PM CDT - 12/06/2024 4:15 PM CDT Emergency [facility] [place] [address] Ronn Conroy PA Abdominal Pain; Nausea Discharge Disposition: Home or Self Care (Routine Discharge) 12/06/2024 Travel 10/27/2024 10:48 AM CDT - 10/27/2024 12:40 PM CDT Emergency [facility] [place] [address] Emma Collado PA Flu Like Symptoms Discharge [...] 2:58 PM Narrative 12/06/2024 2:59 PM CDT [facility] [address] [place], [place] [address] Examination: XR ABD KUB Exam time: 12/06/2024 2:44 PM Indication: constipation Comparison: None available. Technique: 2 supine views of the abdomen, 2 images. Findings: There is a nonobstructive bowel gas pattern with a mild amount of retained stool. No evidence of free intraperitoneal air or pneumatosis. Lung bases appear clear. No acute osseous abnormality. Procedure Note Damon Lopez MD - 12/06/2024 [facility] [address] [place], [place] [address] Examination: XR ABD KUB Exam time: 12/06/2024 [...] URINE CLEAN CATCH 12/06/2024 2:38 PM CDT [facility] COLOR (U) COLORLESS 12/06/2024 2:44 PM CDT [facility] TRANSPARENCY CLEAR 12/06/2024 2:44 PM CDT [facility] SPECIFIC GRAVITY (U) 1.010 1.001 - 1.030 12/06/2024 2:44 PM CDT [facility] U PH 7.0 5.0 - 9.0 12/06/2024 2:44 PM CDT [facility] LEUKOCYTES (U) NEGATIVE NEGATIVE 12/06/2024 2:44 PM CDT [facility] NITRITES NEGATIVE NEGATIVE 12/06/2024 2:44 PM CDT [facility] PROTEIN RANDOM (U) NEGATIVE <30 MG/DL 12/06/2024 2:44 PM CDT [facility] GLUCOSE (U) NORMAL NORMAL MG/DL 12/06/2024 2:44 PM CDT [facility] KETONES MG/DL (U) NEGATIVE NEGATIVE MG/DL 12/06/2024 2:44 PM CDT [facility] UROBILINOGEN NORMAL NORMAL MG/DL 12/06/2024 2:44 PM CDT [facility] BILIRUBIN (U) NEGATIVE NEGATIVE MG/DL 12/06/2024 2:44 PM CDT [facility] BLOOD (U) NEGATIVE NEGATIVE 12/06/2024 2:44 PM CDT [facility] URINE SPECIMEN OBTAINED BY CLEAN CATCH PROCEDURE / Unknown 12/06/2024 2:25 PM CDT us Ronn MACARIO URINE ORDERABLES Final Resu lt [facility] [address] [place] [address], [place] [phone] * COMPREHENSIVE METABOLIC PANEL (12/06/2024 2:25 PM CDT) Only the most recent of2 resultswithin the time period is included. GLUCOSE 91 70 - 99 MG/DL 12/06/2024 3:07 PM CDT [facility] BUN 9 7 - 18 MG/DL 12/06/2024 3:07 PM CDT [facility] CREATININE S/P/B 0.61 0.55 - 1.02 MG/DL 12/06/2024 3:07 PM CDT [facility] SODIUM S/P/B 138 136 - 145 MMOL/L 12/06/2024 3:07 PM CDT [facility] POTASSIUM S/P/B 3.9 3.5 - 5.1 MMOL/L 12/06/2024 3:07 PM CDT [facility] CHLORIDE S/P/B 109 97 - 115 MMOL/L 12/06/2024 3:07 PM CDT [facility] CO2 22.1 21 - 32 MMOL/L 12/06/2024 3:07 PM CDT [facility] CALCIUM S/P/B 9.2 8.5 - 10.1 MG/DL 12/06/2024 3:07 PM CDT [facility] BILIRUBIN TOTAL S/P/B 0.5 0.2 - 1.1 MG/DL 12/06/2024 3:07 PM CDT [facility] Comment: THIS ASSAY IS NOT RECOMMENDED FOR PATIENTS UNDERGOING TREATMENT WITH ELTROMBOPAG DUE TO THE POTENTIAL FOR FALSELY ELEVATED RESULTS. TOTAL PROTEIN S/P/B 7.7 6.4 - 8.2 G/DL 12/06/2024 3:07 PM CDT [facility] ALBUMIN S/P/B 3.9 3.4 - 5.0 G/DL 12/06/2024 3:07 PM T [facility] AST 18 15 - 37 U/L 12/06/2024 3:07 PM CDT [facility] ALT 36 14 - 55 U/L 12/06/2024 3:07 PM CDT [facility] ALKALINE PHOSPHATASE S/P/B 59 50 - 136 U/L 12/06/2024 3:07 PM CDT [facility] ANION GAP 6.9 2 - 10 MMOL/L 12/06/2024 3:07 PM CDT [facility] BUN CREATININE RATIO 14.8 6 - 26 12/06/2024 3:07 PM CDT [facility] A/G RATIO 1.0 1.0 - 2.0 RATIO 12/06/2024 3:07 PM CDT [facility] GFR ESTIMATE >90 >90 ML/MIN/1.7 3 M2 12/06/2024 3:07 PM CDT [facility] Comment: NOTE: eGFR is not calculated for patients <18 years of age or gender unknown. This is an estimated GFR calculation using the new CKD EPI creatinine equation without race and so does not require a correction factor for race. This estimated GFR should not be used for calculating drug doses. 12/06/2024 2:25 PM CDT Ronn MACARIO LABORATORY Final Resul t [facility] [address] [place] [address], [place] [phone] * CBC W/DIFF AUTOMATED (12/06/2024 2:25 PM CDT) Only the most recent of2 resultswithin the time period is included. WBC 8.29 4.5 - 13.0 x10'3/uL 12/06/2024 3:00 PM CDT [facility] RBC 4.31 4.20 - 5.40 x10'6/uL 12/06/2024 3:00 PM CDT [facility] HGB 13.1 12.0 - 16.0 G/DL 12/06/2024 3:00 PM CDT [facility] HCT 38.6 38.0 - 48.0 % 12/06/2024 3:00 PM CDT [facility] MCV 89.6 81.0 - 99.0 FL 12/06/2024 3:00 PM CDT [facility] MCH 30.4 27.0 - 31.0 PG 12/06/2024 3:00 PM CDT [facility] MCHC 33.9 32.0 - 36.0 G/DL 12/06/2024 3:00 PM CDT [facility] RDW 12.5 11.5 - 14.5 % 12/06/2024 3:00 PM CDT [facility] PLT 260 130 - 400 x10'3/uL 12/06/2024 3:00 PM CDT [facility] MPV 10.2 9.3 - 12.2 FL 12/06/2024 3:00 PM CDT [facility] DIFFERENTIAL TYPE AUTOMATED DIFFERENTIAL 12/06/2024 3:00 PM CDT [facility] NEUTROPHILS % 72.3 % 12/06/2024 3:00 PM CDT [facility] LYMPHOCYTES % 18.6 % 12/06/2024 3:00 PM CDT [facility] MONOCYTES % 6.6 % 12/06/2024 3:00 PM CDT [facility] EOSINOPHILS 1.8 % 12/06/2024 3:00 PM CDT [facility] BASOPHILS 0.5 % 12/06/2024 3:00 PM CDT [facility] IMMATURE GRANS % 0.2 % 12/07/19 3:00 PM CDT [facility] ABS. NEUTROPHILS 5.99 1.80 - 8.00 x10'3/uL 12/06/2024 3:00 PM CDT [facility] ABS. LYMPHOCYTES 1.54 1.20 - 5.20 x10'3/uL 12/06/2024 3:00 PM CDT [facility] ABS. MONOCYTES 0.55 0.24 - 0.86 x10'3/uL 12/06/2024 3:00 PM CDT [facility] ABS. EOSINOPHILS 0.15 0.04 - 0.36 x10'3/uL 12/06/2024 3:00 PM CDT [facility] ABS. BASOPHILS 0.04 0.01 - 0.08 x10'3/uL 12/06/2024 3:00 PM CDT [facility] ABS. IMMATURE GRANULOCYTES 0.02 0.00 - 0.49 x10'3/uL 12/06/2024 3:00 PM CDT [facility] 12/06/2024 2:25 PM CDT Ronn MACARIO LABORATORY Final Resul t [facility] [address] [place] [address], [place] [phone] * LIPASE (12/06/2024 2:25 PM CDT) LIPASE 23 13 - 75 UNITS/L 12/06/2024 3:07 PM CDT [facility] 12/06/2024 2:25 PM CDT Ronn MACARIO LABORATORY Final Resul t [facility] [address] [place] [address], [place] [phone] * CORONAVIRUS (COVID 19) (10/27/2024 11:06 AM CDT) CORONAVIRUS SARS COV 2 RNA NEGATIVE NEGATIVE 10/27/2024 11:27 AM CDT [facility] Comment: NEGATIVE RESULTS DO NOT [...] SPECIMEN TYPE NASAL 10/27/2024 11:06 AM CDT [facility] NASAL STRUCTURE / Unknown 10/27/2024 11:06 AM CDT Emma MACARIO MICROBIOLOGY - GENERAL ORDER RIYA Final Result [facility] [address] [place] [address], * INFLUENZA A & B (10/27/2024 11:06 AM CDT) SPECIMEN TYPE Negative for Group A Streptococci 10/27/2024 11:07 AM CDT [facility] INFLUENZA A NEGATIVE NEGATIVE 10/27/2024 11:27 AM CDT [facility] INFLUENZA B NEGATIVE NEGATIVE 10/27/2024 11:27 AM CDT [facility] Comment: Interpretation: Negative for Influenza [...] MICROBIOLOGY - GENERAL ORDER RIYA Final Result [facility] [address] [place] [address], [place] [phone] * (ABNORMAL) STREP A RAPID (10/27/2024 11:06 AM CDT) SPECIMEN TYPE THROAT 10/27/2024 11:06 AM CDT [facility] RAPID STREP TEST POSITIVE(A) NEGATIVE 10/27/2024 11:27 AM CDT [facility] STRUCTURE OF ANTERIOR PORTION OF NECK / Unknown 10/27/2024 11:06 AM CDT Emma MACARIO MICROBIOLOGY - GENERAL ORDER RIYA Final Result [facility] [address] [place] [address], [place] [phone] from Last 3 Months Care Teams Track Machine Operator Repairer Relationship Specialty Start Date End Date None, Provider, MD PCP - General UNKNOWN PHYSICIAN SPECIALTY 10/27/24
[2025-01-24 01:56] VITALS: BP 102/58; PULSE 75; RESP 18; TEMP 36.7; O2SAT 100
--- NOTE | 2025-01-24 02:13 | ED_ITS ---
HPI - SOB/Dyspnea General Chief Complaint: Shortness of Breath/Dyspnea Stated Complaint: uri symptoms x 2 weeks, sob Time Seen by Provider: 01/24/25 00:45 History of Present Illness HPI Narrative: Patient presents with congestion, productive cough, now lasting for 2 weeks, feels worse when she lays flat, was seen at urgent care and was told it was viral however her symptoms have not resolved despite [id number] treatments. Only has chest pain when she coughs, and shortness of breath when she lays flat and has congestion. Related Data Allergies Allergy/AdvReac Type Severity Reaction Status Date / Time No Known Allergies Allergy Mild Verified 01/18/25 21:05 Review of Systems 2 Review of Systems: All systems reviewed & are unremarkable except as noted in HPI and below PMFSH Past Medical History Medical History (Updated 01/24/25 @ 02:06 by Flora Miller MD) No active medical problems Social History Social History (Updated 01/09/22 @ 17:42 by Larissa Long, ELECTRONIC EQUIPMENT SET UP OPERATOR) Smoking status: Never smoker Living arrangements: with family Gender identity (if verbalized by the patient): Female Exam 2 Narrative: EXAMINATION OF ORGAN SYSTEMS/BODY AREAS: Constitutional: Vital signs per nursing GENERAL:[No acute distress, non-toxic appearing.] HEAD: Normal with no signs of head trauma. EYES: EOMI, conjunctiva normal ENT: Hearing grossly intact, normal voice LUNGS: Nonlabored breathing. Clear to auscultation bilaterally. HEART: [Regular rate and rhythm] ABD: [Soft], [nontender to palpation] EXT: Normal range of motion SKIN: [No rashes or lesions.] NEURO: [Alert and oriented x 3. No gross focal sensory or strength deficits.] PSYCH: Normal affect Course Vital Signs Vital signs: Vital Signs Temperature 98.4 F 01/24/25 00:43 Pulse Rate 78 01/24/25 00:43 Respiratory Rate 16 01/24/25 00:43 Blood Pressure 110/74 01/24/25 00:43 Pulse Oximetry 100 01/24/25 00:43 Temperature 98.1 F 01/24/25 01:56 Pulse Rate 75 01/24/25 01:56 Respiratory Rate 18 01/24/25 01:56 Blood Pressure 102/58 L 01/24/25 01:56 Pulse Oximetry 100 01/24/25 01:56 Oxygen Delivery Room Air 01/24/25 01:23 MDM - SOB/Dyspnea MDM Narrative Medical decision making narrative: ED COURSE AND MEDICAL DECISION MAKING: This 19 year old patient presents with symptoms most suggestive of viral upper respiratory tract infection. Lungs are clear bilaterally without any respiratory distress or accessory muscle use. No lower extremity swelling DVT symptoms perc negative. Patient is treated symptomatically with DuoNebs, though on re-evaluation she does not feel like it helped. EKG on my independent interpretation shows normal sinus rhythm rate 66, ID 159, QRS 93, QTC 405. Labs within acceptable limits. Chest x-ray on my independent interpretation does not show any obvious consolidations, however given her persistent symptoms I will treat for potential atypical pneumonia, trial steroids, Flonase. She will be discharged home in stable condition with expectant management. PCP provided, Return precautions were provided. Lab Data 01/24/25 01:04 01/24/25 01:04 Labs: Lab Results 01/24/25 Range/Units 01:04 WBC 7.2 (4.5-10.0) K/mm3 RBC 4.12 L (4.2-5.4) M/mm3 Hgb 12.4 (12.0-15.0) g/dL Hct 36.7 L (37.0-47.0) % MCV 89.1 (80-100) fl MCH 30.1 (26-34) pg MCHC 33.8 (32-36) g/dl RDW 11.9 (11.5-14.5) % Plt Count 289 (150-375) k/mm3 MPV 9.6 (7.4-10.4) fl Immature Gran % (Auto) 0.3 (0-0.5) % Neut % (Auto) 50.2 (45.5-73.1) % Lymph % (Auto) 34.7 (18.3-44.2) % [place] % (Auto) 8.0 (2.6-8.5) % Eos % (Auto) 6.2 H (0-4.4) % Baso % (Auto) 0.6 (0.2-1.2) % Lymph # (Auto) 2.50 (0.9-3.2) K/mm3 [place] # (Auto) 0.6 (0.1-0.6) K/mm3 Eos # (Auto) 0.5 H (0-0.3) K/mm3 Baso # (Auto) 0.0 (0.0-0.1) K/mm3 Abs Immat Gran (auto) 0.02 (0.00-0.031) K/mm3 Absolute Neuts (auto) 3.6 (1.3-6.7) K/mm3 Absolute Nucleated RBC 0.000 (0.0-0.012) K/mm3 Nucleated RBC % 0.0 (0.0-0.2) % Sodium 135 L (137-145) mmol/L Potassium 3.4 (3.4-5.0) mmol/L Chloride 103 (98-107) mmol/L Carbon Dioxide 22 (22-30) mmol/L Anion Gap 10 (4-12) mmol/L BUN 9 (7-17) mg/dL Creatinine 0.64 L (0.7-1.0) mg/dL Estim Creat Clear Calc 105 ml/min Estimated GFR > 60 (59 - ) Glucose 93 (65-110) mg/dL Calcium 9.4 (8.4-10.2) mg/dL Total Bilirubin 0.3 (0.2-1.3) mg/dL AST 27 (14-36) U/L ALT 20 (6-35) U/L Alkaline Phosphatase 61 (38-126) U/L Total Protein 8.4 H (6.3-8.2) g/dL Albumin 4.6 (3.5-5.1) g/dL Discharge Plan Discharge Clinical Impression: Acute bronchitis Patient Disposition: Home Condition: Stable Instructions: Acute Bronchitis (ED) Additional Instructions: Please follow-up with primary care doctor, try the medications as prescribed, if you feel worse, please return to the emergency room. Patient Language: Swazi Prescriptions: New fluticasone propionate [Allergy Relief (fluticasone)] 50 mcg/actuation spray,suspension 1 spray intranasal DAILY Qty: 16 0RF Rx Instructions: administer into each nostril azithromycin 250 mg tablet See Rx Instructions .ROUTE .COMPLEX Qty: 6 0RF Rx Instructions: For 250 mg dose pack: take 500 mg today (day 1), then 250 mg for 4 days (days 2-5) prednisone 20 mg tablet 40 mg PO DAILY 5 Days Qty: 10 0RF No Action nitrofurantoin macrocrystal 100 mg capsule 100 mg PO Q12H 5 Days Qty: 10 5RF Rx Instructions: must administer with a meal/food Follow-up/Referrals: PHYSICIAN,[employer] [Primary Care Provider] - Fady Ozuna MD [Physician] - 2 Days Stand Alone Forms: Work/School Release IP
== END 2025-01-24 02:24 | disposition home or self-care (01) ==
PROVIDERS: Emergency Provider Emergency Medicine
DX: J20.9 Acute bronchitis, unspecified (principal)
CPT/HCPCS: 36415; 71046; 80053; 85025; 93005; 94640; 99284

== ENCOUNTER 2025-06-21 10:33 | Emergency (ER) | payer OTHER, SELFPAY ==
[2025-06-21 10:43] VITALS: BP 120/68; PULSE 88; RESP 20; TEMP 36.6; O2SAT 100
--- NOTE | 2025-06-21 11:02 | ED.URI ---
HPI - URI/Sore Throat General Chief Complaint: Upper Respiratory Infection Stated Complaint: cold symptoms Time Seen by Provider: 06/21/25 11:02 Source: patient and RN notes reviewed Mode of arrival: ambulatory Limitations: no limitations History of Present Illness HPI Narrative: 19-year-old female presents Express Care complaining of upper respiratory symptoms for 2-3 days. Patient reports rhinorrhea, congestion, sore throat, cough, body aches, chills. Patient denies any fever, any other upper respiratory symptoms, chest pain, breathing problems, nausea vomiting, diarrhea, any other symptoms. Patient denies any significant past medical history. Patient tried NyQuil last night to help with symptoms. Related Data Home Medications ?Medication ?Instructions ?Recorded ?Confirmed ?Last Taken ?Type No Home Medications 06/21/25 06/21/25 Unknown History Allergies Allergy/AdvReac Type Severity Reaction Status Date / Time No Known Allergies Allergy Mild Verified 06/21/25 10:46 Review of Systems Review of Systems: CONSTITUTIONAL: Denies fever or sweats. Positive for chills, body aches EYES: Denies visual changes, redness, or discharge. ENT: Positive for rhinorrhea, congestion, sore throat. Negative for or otalgia. CARDIOVASCULAR: Denies chest pain, palpitations, or edema. RESPIRATORY: Positive for cough. Negative for dyspnea. GASTROINTESTINAL: Denies abdominal pain, nausea, vomiting, or diarrhea. GENITOURINARY: Denies dysuria or hematuria. SKIN: Denies rash or itching. MUSCULOSKELETAL: Denies back pain, joint pain, or myalgia. NEUROLOGIC: Denies headache, numbness, or weakness. PSYCHIATRIC: Denies anxiety or depression. All other systems reviewed are negative, except as documented in HPI. PMFSH Past Medical History Medical History No active medical problems Social History Social History Smoking status: Never smoker Living arrangements: with family Gender identity (if verbalized by the patient): Female Comments At the time of my signature, I reviewed and agree with the nursing past medical, surgical, social, and family history. There is no relevant family history pertinent to the patient complaint. Exam Narrative: GENERAL: This is a well-nourished, well-developed adult, in no apparent distress. They are non ill-appearing, nontoxic appearing. HEAD: normocephalic, atraumatic. EYES: Sclera clear/white. Vision is grossly intact. Conjunctiva normal bilaterally. Extraocular movements intact. EARS: External ears normal, auditory canals clear and without drainage, TMs without erythema or perforation. Hearing grossly intact. NOSE: External nose normal with no obvious nasal discharge, nasal turbinates erythematous, no rhinorrhea. THROAT: Mucous membranes moist, posterior pharynx erythematous without exudate. Uvula is midline. Postnasal drip present. NECK: Neck supple, non-tender without lymphadenopathy, masses or thyromegaly. CARDIOVASCULAR: Regular rate and rhythm without murmurs, gallops, or rubs. RESPIRATORY: Clear to auscultation. Breath sounds equal bilaterally. No wheezes, rales, or rhonchi. SKIN: warm, Dry, intact with no suspicious lesions or rash, good texture and turgor. NEURO: awake, alert, and oriented to person, place and time. There were no obvious focal neurologic abnormalities. EXTREMITIES: No joint tenderness, effusion, or edema noted. BACK: Nontender without deformity. Course Course Level of Care: Express Care Visit Vital Signs Vital signs: Vital Signs Temperature 98 F 06/21/25 10:43 Pulse Rate 88 06/21/25 10:43 Respiratory Rate 20 06/21/25 10:43 Blood Pressure 120/68 06/21/25 10:43 Pulse Oximetry 100 06/21/25 10:43 Oxygen Delivery Room Air 06/21/25 10:43 Temperature 98 F 06/21/25 10:43 Pulse Rate 88 06/21/25 10:43 Respiratory Rate 20 06/21/25 10:43 Blood Pressure 120/68 06/21/25 10:43 Pulse Oximetry 100 06/21/25 10:43 Oxygen Delivery Room Air 06/21/25 10:43 MDM MDM Narrative Medical decision making narrative: Rapid COVID, flu, strep were negative. Throat culture is pending. Symptoms likely viral in etiology. Discussed physical exam findings. Advised supportive measures and signs/symptoms to go to the ER. Pt is appropriate for outpt treatment and f/u. Differential Diagnosis Differential Diagnosis: Differential diagnostic considerations for upper respiratory infection include upper respiratory infection, croup, otitis media, sinusitis, viral infection, bronchitis, influenza, pharyngitis, strep, uvulitis. Lab Data [facility] Lab Attestation statement: I personally reviewed the patient's lab results. Labs: Lab Results 06/21/25 Range/Units 11:12 POC Influenza A Ag Negative (Negative) POC Influenza B Ag Negative (Negative) POC SARS CoV-2 Ag Negative (Negative) POC Grp A Strep Screen Negative (Negative) Discharge Plan Discharge Clinical Impression: Upper respiratory infection Qualifiers: URI type: acute nasopharyngitis (common cold) Qualified Code(s): J00 - Acute nasopharyngitis [common cold] Patient Disposition: Home Condition: Stable Instructions: Antibiotic Form, Upper Respiratory Infection (ED) Additional Instructions: Your rapid COVID, flu, rapid strep swab was negative today at [facility]. You will be notified in a few days if the culture comes back positive for strep, and appropriate antibiotics will be called in for you at that time. Your symptoms are likely due to a viral illness, which is not treated with antibiotics. Viral symptoms can be present for up to 7-10 days. Take Tylenol or ibuprofen as needed for fever or pain. Follow the instructions on the bottle. Rest and stay hydrated. Follow up with your PCP in 3-5 days if symptoms are not improving. Go to the ER immediately if you developed chest pain, vomiting, confusion difficulty breathing or swallowing, or any serious concerns Patient Language: Serbian Prescriptions: No Action No Home Medications Follow-up/Referrals: PHYSICIAN,[employer] [Primary Care Provider, Internal Medicine] Stand Alone Forms: Work/School Release IP Time of Disposition: 11:10
--- OUTSIDE RECORDS SUMMARY | 2025-06-21 11:09 | XMS_ITS | Clinical Summary ---
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 [place] [address] Nu Montemayor N, OPERATIONS AGENT [address] [place] [address] Health Maintenance Due Date Last Done Comments Hepatitis A Vaccines (2 of 2 - 2-dose series) 09/03/2007 03/05/2007 Annual Physical 12/22/2007 HPV Vaccines (2 - 2-dose series) 10/09/2017 04/10/2017 Meningococcal B Vaccine (1 of 2 - Standard) 2020 Hepatitis C 2022 COVID-19 Vaccine (3 - 2024- season) 2025 04/24/2021, 04/03/2021 Influenza Adult (#1) 2025 DTaP, Tdap and Td Vaccines (6 - [...] on patient's age to complete this topic Insurance [facility] Care Teams Dusting And 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
--- OUTSIDE RECORDS SUMMARY | 2025-06-21 11:09 | XMS_ITS | Clinical Summary ---
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
[2025-06-21 11:14] LABS: EDCOVIDSCREEN Negative (Negative); EDINFLUASCREEN Negative (Negative); EDINFLUBSCREEN Negative (Negative); EDSTREPNEGPOS1 Negative (Negative)
== END 2025-06-21 11:16 | disposition home or self-care (01) ==
DX: J00 Acute nasopharyngitis [common cold] (principal); Z20.822 Contact with and (suspected) exposure to COVID-19
CPT/HCPCS: 87081; 87426; 87804; 87880; 99213; G0463